=== PATIENT | female | born 1965 | race Caucasian/White ===

== ENCOUNTER → 2017-07-01 | Outpatient (CLI) | payer OTHER | LOC: M RAD 10:38 | DX: Z96.651 Presence of right artificial knee joint (principal) ==

== ENCOUNTER → 2018-03-31 | Outpatient (CLI) | payer BC | LOC: M RAD 16:15 | DX: Z12.31 Encounter for screening mammogram for malignant neoplasm of breast (principal); Z80.3 Family history of malignant neoplasm of breast; N60.31 Fibrosclerosis of right breast; N60.32 Fibrosclerosis of left breast | CPT/HCPCS: 77067 ==

== ENCOUNTER 2018-09-16 16:43 | Emergency (ER) | payer BC ==
[~2018-09-16] VITALS: Ht 162.6 cm; Wt 118.2 kg
[~2018-09-16 16:43] MED LIST: COUM2.5T17 PO; DRIS50003 PO; LEVO150T7 PO; MOBI15TA PO; TRAM50TA2 PO; VITA-112 PO
[2018-09-16] MEDS ORDERED: MYRB25TA PO (17:01)
[2018-09-16] MEDS ORDERED: ACETAMINOPHEN 500 MG TAB PO ONE (17:30)
[2018-09-16] MEDS ORDERED: IBUPROFEN 600 MG TAB PO ONE (17:30)
--- NOTE | 2018-09-16 17:32 | REP ---
Chest one-view HISTORY: Chest pain Comparison: 02/13/2016 The lungs are clear. The heart is normal in size. The pulmonary vasculature is normal in appearance. Impression: No acute disease. Electronically Signed by Norm Hubbard MD 09/16/2018 05:24 P
[2018-09-16 17:58] LABS: BASO % 0.4 % (0.0-1.0); EOS # 0.2 10^3/uL (0.0-0.50); EOS % 2.3 % (0.0-3.0); HEMATOCRIT 40.6 % (36.0-47.0); HEMOGLOBIN 13.7 g/dl (12.0-15.5); LYMPH # 2.7 10^3/uL (1.5-4.5); LYMPH % 34.3 % (24.0-44.0); MEAN CORPUSCULAR HEMOGLOBIN 28.9 pg (27.0-33.0); MEAN CORPUSCULAR HGB CONC 33.7 g/dl (32.0-36.5); MEAN CORPUSCULAR VOLUME 85.7 fl (80.0-96.0); MONO # 0.6 10^3/uL (0.0-0.8); MONO % 7.1 % (0.0-5.0); NEUTROPHILS # 4.3 10^3/uL (1.8-7.7); NEUTROPHILS % 55.4 % (36.0-66.0); PLATELET COUNT, AUTOMATED 225 10^3/uL (150-450); RED BLOOD COUNT 4.74 10^6/uL (4.00-5.40); WHITE BLOOD COUNT 7.7 10^3/uL (4.0-10.0)
[2018-09-16 18:13] LABS: INR 0.94; PROTHROMBIN TIME 12.7 SECONDS (12.1-14.4)
[2018-09-16 18:24] LABS: ALBUMIN 3.6 GM/DL (3.2-5.2); ALT/SGPT 80 U/L (12-78); BILIRUBIN,DIRECT < 0.1 MG/DL (0.0-0.2); BILIRUBIN,TOTAL 0.5 MG/DL (0.2-1.0); BLOOD UREA NITROGEN 8 MG/DL (7-18); CALCIUM LEVEL 9.3 MG/DL (8.5-10.1); CARBON DIOXIDE LEVEL 26 MEQ/L (21-32); CHLORIDE LEVEL 108 MEQ/L (98-107); CPK CREATINE PHOSPHOKINASE 156 U/L (26-192); GLOMERULAR FILTRATION RATE > 60.0 (>51); GLUCOSE, FASTING 124 MG/DL (70-100); LIPASE 180 U/L (73-393); MB/CK RELATIVE INDEX 1.03 (< OR =4); NT-PRO BNP 21 PG/ML (<125); POTASSIUM SERUM 3.8 MEQ/L (3.5-5.1); SODIUM LEVEL 141 MEQ/L (136-145); TOTAL PROTEIN 7.7 GM/DL (6.4-8.2); TROPONIN I < 0.02 NG/ML (< 0.10)
[2018-09-16] MEDS ORDERED: ISOVUE-370 76% 100ML VIAL (Q9967) As Ordered ONE (19:15)
--- NOTE | 2018-09-16 20:29 | ECGEPIP ---
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
--- NOTE | 2018-09-16 20:42 | REPVR ---
EXAM: CT Angiography Chest With Contrast EXAM DATE/TIME: 09/16/2018 7:19 PM CLINICAL HISTORY: 52 years old, female; Signs and symptoms; Shortness of breath; Additional info: Kehinde radford TECHNIQUE: Imaging protocol: Axial computed tomographic angiography images of the chest with intravenous contrast using CT angiography protocol. Coronal and sagittal reformatted images were created and reviewed. 3D rendering: MIP reconstructed images were created and reviewed. Radiation optimization: All CT scans at this facility use at least one of these dose optimization techniques: automated exposure control; mA and/or kV adjustment per patient size (includes targeted exams where dose is matched to clinical indication); or iterative reconstruction. Contrast material: ISOVUE 370; Contrast volume: 75 ml; Contrast route: IV; COMPARISON: CR PORTABLE CHEST X-RAY 09/16/2018 5:10 PM FINDINGS: Pulmonary arteries: Normal. No pulmonary emboli. Aorta: Normal. No aortic aneurysm. No aortic dissection. Lungs: 5 mm nodule anterior segment right upper lobe (series 502 image 32). Discoid atelectasis or scar in the lingula. Pleural space: Normal. No pneumothorax. No pleural effusion. Heart: Normal. No cardiomegaly. No pericardial effusion. Mediastinum: There's a small sliding hiatal hernia. Lymph nodes: Unremarkable. No enlarged lymph nodes. Bones/joints: Unremarkable. No acute fracture. Soft tissues: Unremarkable. IMPRESSION: 1. No acute pulmonary embolism. 2. 5 mm nodule right upper lobe.No routine follow-up is indicated. (Gregory et al., Fleischner Society, 2017) Electronically signed by: Mary Chilel On 09/16/2018 20:41:48 PM
[2018-09-16 21:41] LABS: CPK CREATINE PHOSPHOKINASE 128 U/L (26-192); MB/CK RELATIVE INDEX 0.78 (< OR =4); TROPONIN I < 0.02 NG/ML (< 0.10)
[2018-09-16 22:00] VITALS: BP 144/81
--- NOTE | 2018-09-17 06:40 | ECGEPIP ---
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
--- NOTE | 2018-09-17 07:21 | ED PDOC ---
Post-Departure Follow-Up jess romero faxed formal report of cta chest for fu Leila Gee MD Sep 17, 2018 07:21
--- NOTE | 2018-09-17 07:46 | REP ---
LEFT SHOULDER THREE VIEWS: HISTORY: Shoulder pain. There is no acute fracture or dislocation. There is moderate narrowing of the acromioclavicular joint space. The glenohumeral joint space is normal in appearance. IMPRESSION: Degenerative change as described above. Electronically Signed by Norm Hubbard MD 09/17/2018 07:59 A
== END 2018-09-16 22:28 | disposition home or self-care (01) ==
LOC: M ED 16:43
DX: R07.89 Other chest pain (principal); R91.1 Solitary pulmonary nodule; M19.012 Primary osteoarthritis, left shoulder; R00.2 Palpitations; Z87.59 Personal history of other complications of pregnancy, childbirth and the puerperium; Z87.891 Personal history of nicotine dependence; Z82.49 Family history of ischemic heart disease and other diseases of the circulatory system; Z83.3 Family history of diabetes mellitus; Z79.899 Other long term (current) drug therapy; Z88.5 Allergy status to narcotic agent; Z88.1 Allergy status to other antibiotic agents; Z91.040 Latex allergy status
CPT/HCPCS: 71045; 71275; 73030; 80048; 80076; 82550; 82553; 83690; 83880; 84484; 85025; 85379; 85610; 93005; 93041; 94760; 99285; Q9967

== ENCOUNTER → 2018-11-02 | Outpatient (CLI) | payer BC ==
[~2018-11-02] MED LIST changes: +MYRB25TA PO
--- NOTE | 2018-11-02 10:24 | REP ---
CT NECK WITHOUT CONTRAST: HISTORY: Right parotid gland stone. The naso-, timo-, and hypopharynx, larynx and subglottic trachea are normal in appearance. A 6 mm calcification is present in the right parotid gland. The left parotid , submandibular and thyroid glands are normal in size and density. Small lymph nodes less than 1 cm in size are present in the internal jugular chains, posterior triangles and submandibular areas. The lung apices are clear. The visualized sinuses are clear. The patient is status-post right mastoidectomy. Soft tissue density is present at the right mastoidectomy site. This represents scar tissue. Mucosal thickening is present in the left middle ear cavity and mastoid air cells. IMPRESSION: 1. Right parotid gland sialolithiasis . 2. The patient is status-post right mastoidectomy. Electronically Signed by Norm Hubbard MD 11/02/2018 10:30 A
== END ==
LOC: M RAD 09:18
PROVIDERS: ATTEND Otolaryngology
DX: K11.5 Sialolithiasis (principal)

== ENCOUNTER → 2018-11-04 | Outpatient (CLI) | payer BC ==
--- NOTE | 2018-11-04 19:30 | REP ---
THORACIC SPINE: AP and lateral views of the thoracic spine performed with three total views obtained. There is no compression fracture or malalignment with normal thoracic kyphosis. There is mild spurring of upper thoracic vertebral bodies. Large spurs are seen anteriorly of T9 through T11. There is mild disc space narrowing and subchondral sclerosis at all levels. Posterior elements are intact. IMPRESSION: Diffuse degenerative changes without evidence of fracture. Electronically Signed by Addi Douglas MD 11/04/2018 07:51 P
--- NOTE | 2018-11-04 19:33 | REP ---
LUMBOSACRAL SPINE SERIES: Five views of the lumbosacral spine are performed. There is no compression fracture or malalignment with normal lumbar lordosis. There is no spondylolysis or spondylolisthesis. There is mild diffuse spurring. There is slight narrowing at L4-L5 disc space. There is sclerosis and spurring at the posterior facet joints especially L5-S1. Posterior elements are intact. IMPRESSION: Relatively mild diffuse degenerative changes without fracture or dislocation. Electronically Signed by Addi Douglas MD 11/04/2018 07:51 P
== END ==
LOC: M WUC 16:34
PROVIDERS: ATTEND Chiropractor
DX: M54.5 Low back pain (principal); M54.6 Pain in thoracic spine

== ENCOUNTER → 2019-02-01 | Outpatient (CLI) | payer BC ==
[2019-02-01 08:28] LABS: ALBUMIN 3.4 GM/DL (3.2-5.2); ALT/SGPT 44 U/L (12-78); BILIRUBIN,TOTAL 0.9 MG/DL (0.2-1.0); BLOOD UREA NITROGEN 14 MG/DL (7-18); CALCIUM LEVEL 9.1 MG/DL (8.5-10.1); CARBON DIOXIDE LEVEL 28 MEQ/L (21-32); CHLORIDE LEVEL 110 MEQ/L (98-107); CREATININE FOR GFR 0.82 MG/DL (0.55-1.30); GLOMERULAR FILTRATION RATE > 60.0 (>51); GLUCOSE, FASTING 129 MG/DL (70-100); POTASSIUM SERUM 4.3 MEQ/L (3.5-5.1); SODIUM LEVEL 144 MEQ/L (136-145); TOTAL PROTEIN 6.9 GM/DL (6.4-8.2)
[2019-02-01 08:37] LABS: CREATININE, URINE 68.2 MG/DL; MALB URINE SIEMENS 6.4 MG/L; MAU/CREAT RATIO 9.3 MCG/MG (0.0-30.0)
[2019-02-01 08:44] LABS: HEMOGLOBIN A1c 6.4 %
== END ==
LOC: M LAB 07:15
PROVIDERS: ATTEND Nurse Practitioner Family
DX: E11.9 Type 2 diabetes mellitus without complications (principal); Z79.899 Other long term (current) drug therapy

== ENCOUNTER → 2019-04-04 | Outpatient (CLI) | payer BC ==
--- NOTE | 2019-04-04 18:32 | REPMRS ---
Patient History The patient states she had a clinical breast exam in May 2018.Family history of breast cancer in paternal aunt, breast cancer at age 80 in paternal aunt, breast cancer at age 60 in sister. Taking unspecified hormones beginning at age 16. Digital Mammo Screening Bilat: April 04, 2019 - Exam #: [id number] Bilateral CC and MLO view(s) were taken. Technologist: Bibiana Small, Technologist Prior study comparison: March 31, 2018, bilateral digital mammo screening bilat performed at [facility]. March 26, 2017, bilateral digital mammo screening bilat, performed at [facility]. December 18, 2015, bilateral digital mammo screening bilat, performed at [facility]. FINDINGS: The breast tissue is heterogeneously dense. This may lower the sensitivity of mammography. There is a moderate amount of heterogeneously dense fibroglandular tissue which is fairly symmetric. There is no interval development of dominant mass, architectural distortion, or grouped microcalcification typical of malignancy. There has been no change in the appearance of the mammogram from the prior studies. 3-D tomosynthesis shows no additional findings. Assessment: BI-RADS/ACR category 1 mammogram. Negative Mammogram. Recommendation Breast MRI of both breasts in 6 months. Routine screening mammogram of both breasts in 1 year (for women over age 40). This patient's Lifetime Breast Cancer RIsk is estimated at 25.3 %. Annual screening Breast MRI scanniing is recommended for patient's whose lifetime risk assessment is over 20%. This mammogram was interpreted with the aid of an FDA-approved computer-aided dectection system. Electronically Signed By: George Wright MD 04/04/19 [id number]
== END ==
LOC: M RAD 16:18
PROVIDERS: ATTEND Obstetrics & Gynecology
DX: Z12.31 Encounter for screening mammogram for malignant neoplasm of breast (principal)

== ENCOUNTER → 2019-05-01 | Outpatient (CLI) | payer BC ==
[2019-05-01 10:50] LABS: HEMOGLOBIN A1c 6.2 %
== END ==
LOC: M LAB 07:10
PROVIDERS: ATTEND Nurse Practitioner Family
DX: E11.9 Type 2 diabetes mellitus without complications (principal)

== ENCOUNTER 2019-06-19 14:10 | Day surgery (SDC) | payer BC ==
[~2019-06-19] VITALS: Ht 162.6 cm; Wt 116.3 kg
[~2019-06-19 14:10] MED LIST changes: +ceFAZolin SOD 2 GM in IV 1 EA IV ONE
[2019-06-19] MEDS ORDERED: VESI10TA2 PO (14:41)
[2019-06-19] MEDS ORDERED: TIZA2CAP PO (14:41)
[2019-06-19] MEDS ORDERED: GLIP10TA PO (14:41)
[2019-06-19] MEDS ORDERED: ATOR1TAB21 PO (14:41)
[2019-06-19] MEDS ORDERED: SUPECAP7 PO (14:41)
[2019-06-19] MEDS ORDERED: fentaNYL 250 MCG/5 ML INJECTION (J3010) As Ordered ONE (15:27)
[2019-06-19] MEDS ORDERED: LIDOCAINE 2% INJ 100 MG/5 ML SDV (FOR ANES.) As Ordered ONE ×2 (15:28→17:07)
[2019-06-19] MEDS ORDERED: ONDANSETRON 4MG/2ML VIAL (J2405) As Ordered ONE (15:28)
[2019-06-19] MEDS ORDERED: MIDAZOLAM INJ 2 MG/2 ML VIAL (J2250) As Ordered ONE (15:28)
[2019-06-19] MEDS ORDERED: dexameTHASONE 4 MG/ML 1ML VIAL (J1100) As Ordered ONE (15:28)
[2019-06-19] MEDS ORDERED: ROCURONIUM BROMIDE 50 MG/5 ML VIAL As Ordered ONE (15:28)
[2019-06-19] MEDS ORDERED: SUGAMMADEX SODIUM 500 MG/5 ML VIAL (BRIDION) As Ordered ONE ×2 (15:28→17:07)
[2019-06-19] MEDS ORDERED: propofoL 200 MG/20 ML VIAL As Ordered ONE (15:34)
[2019-06-19] MEDS ORDERED: BUPIVACAINE/EPIN 0.25% 30 ML VIAL As Ordered ONE (15:56)
[2019-06-19] MEDS ORDERED: SCOPOLAMINE 1MG TRANSDERMAL PATCH As Ordered ONE (15:57)
[2019-06-19] MEDS ORDERED: KETAMINE HCL 200 MG/20 ML VIAL As Ordered ONE (17:01)
[2019-06-19] MEDS ORDERED: KETOROLAC 60 MG/2 ML VIAL (J1885) As Ordered ONE (17:36)
[2019-06-19] MEDS ORDERED: ACETAMINOPHEN 1000MG 100ML IV BTL (OFIRMEV) (J0131 PER 10MG) As Ordered ONE (17:37)
[2019-06-19] MEDS ORDERED: LR 1,000 ML IV SCH (18:15)
[2019-06-19] MEDS ORDERED: fentaNYL 100 MCG/2 ML INJECTION (J3010) IV PRN (18:15)
[2019-06-19] MEDS ORDERED: ONDANSETRON 4MG/2ML VIAL (J2405) IV PRN (18:15)
[2019-06-19] MEDS ORDERED: oxyCODONE 5MG TAB PO PRN ×2 (18:45)
--- NOTE | 2019-06-19 21:00 | RO ---
DATE OF PROCEDURE: 06/19/2019 PREPROCEDURE DIAGNOSIS: Right distal bicep tear. POSTPROCEDURE DIAGNOSIS: Right distal bicep tear. PROCEDURE: Right distal bicep repair. SURGEON: Osvaldo Laughlin MD STONECUTTER: None. ANESTHESIA: General. PREOPERATIVE ANTIBIOTICS: 2 grams of Ancef. COMPLICATIONS: None. TOURNIQUET TIME: 50 minutes. INDICATIONS: This is a 53-year-old female who suffered a right distal bicep tear. We discussed the risks and benefits of surgical repair, and the patient wished to have it done. We discussed the risks and benefits, including, but not limited to, infection, damage to surrounding structures, incomplete relief, and rerupture, patient wished to proceed. DESCRIPTION OF PROCEDURE: The patient was brought back to the operating room (OR) in the supine position, underwent general anesthesia, at which point the right arm was prepped and draped in the usual fashion. We then had a time-out confirming the side, site, and surgery. Once all in agreement, we elevated the tourniquet up to 250 mmHg. We then made a longitudinal incision along the ulnar border of brachial radialis, approximately 2 cm distal to the antecubital fossa, approximately 4 cm in length. We then sharply dissected through the subcutaneous tissue, careful to find the border between brachial radialis and flexor carpi radialis (FCR). We developed this border, encountering a lot of musculocutaneous nerve. We carefully retracted it laterally. We then used a combination of cautery, small and medium vascular clips to dissect through crossing veins and remove them from our field. We then visualized the proximal radius. The bicep tendon had retracted about 2 cm with approximately 2-5% incontinuity that kept it from retracting further. The rupture was completed. We then whip-stitched the distal bicep using the Arthrex kit with a Fred needle. Once this was done, we applied traction and freed it up from any proximal adhesions. We then maximally supinated the wrist to expose the distal bicep insertion. We cleared this of any debris. We then used the 3.[address] a center hole and aimed about 30 degrees ulnar to avoid the posterior interosseous nerve (PIN). We then sized the tendon to be a size 8. We then used the 8 reamer to do the near cortex, at which point we loaded the button in the usual fashion. We removed the 3.2 mm drill, inserted the button and flipped it. We then tightened down the FiberWire so that it dunked the tendon into the 8 reamed hole. It situated quite nicely. We then used a 3 needle to pass one stitch through the distal biceps, then tied it down tight. We ranged the elbow and felt that the elbow could out to complete extension with pronation without excessive tension on the repair. We were very happy with this, so then we irrigated the wound thoroughly, closed the superficial with #2-0 Vicryl, skin with #3-0 Monocryl, Mastisol, Steri-Strips, gauze, Tegaderm, Kerlix and an Brendan. Tourniquet was let down. The patient was awakened and taken to the post-anesthesia care unit (PACU) in stable condition. POSTOPERATIVE PLAN: The patient will work on pain and active and passive range of motion of the elbow with limited weightbearing to a coffee cup, 2 pounds. Will see the patient back in 2 weeks for a repeat clinical check and will wait approximately 6 weeks since surgery to advance her weightbearing, but will determine the need for physical therapy at her first visit.
[2019-06-19 21:45] VITALS: BP 153/78
[2019-06-20] MEDS ORDERED: LR 1,000 ML IV ONE (07:00)
== END 2019-06-19 22:04 | disposition home or self-care (01) ==
LOC: M SDC 14:10
PROVIDERS: ATTEND Orthopaedic Surgery Hand Surgery
DX: S46.111A Strain of muscle, fascia and tendon of long head of biceps, right arm, initial encounter (principal); X58.XXXA Exposure to other specified factors, initial encounter; Y92.89 Other specified places as the place of occurrence of the external cause; G47.30 Sleep apnea, unspecified; E11.9 Type 2 diabetes mellitus without complications; E07.9 Disorder of thyroid, unspecified; K21.9 Gastro-esophageal reflux disease without esophagitis; M54.9 Dorsalgia, unspecified; E66.9 Obesity, unspecified; Z88.5 Allergy status to narcotic agent; Z88.1 Allergy status to other antibiotic agents
CPT/HCPCS: 24342; C1713; J0131; J0690; J1100; J1885; J2250; J2405; J3010

== ENCOUNTER → 2020-01-01 | Outpatient (CLI) | payer BC ==
[~2020-01-01] MED LIST changes: +ATOR1TAB21 PO; +GLIP10TA PO; +SUPECAP7 PO; +TIZA2CAP PO; +VESI10TA2 PO; -ceFAZolin SOD 2 GM in IV 1 EA IV ONE
[2020-02-13 10:55] LABS: CARBON DIOXIDE LEVEL 27 MEQ/L (21-32); CHLORIDE LEVEL 109 MEQ/L (98-107); CREATININE FOR GFR 0.76 MG/DL (0.55-1.30); GLOMERULAR FILTRATION RATE > 60.0 (>51); POTASSIUM SERUM 3.6 MEQ/L (3.5-5.1); SODIUM LEVEL 142 MEQ/L (136-145)
== END ==
LOC: M LAB 14:20
PROVIDERS: ATTEND Obstetrics & Gynecology
DX: N32.81 Overactive bladder (principal)

== ENCOUNTER → 2020-03-07 | Outpatient (REF) | payer BC ==
[2020-03-07 21:59] LABS: APPEARANCE, URINE HAZY (CLEAR); BACTERIA, URINE AUTO NEGATIVE (NEGATIVE); BILIRUBIN, URINE AUTO NEGATIVE (NEGATIVE); BLOOD, URINE BLOOD 2+ (NEGATIVE); COLOR, URINE YELLOW (YELLOW); GLUCOSE, URINE (UA) AUTO NEGATIVE (NEGATIVE); KETONE, URINE AUTO NEGATIVE (NEGATIVE); LEUKOCYTE ESTERASE, URINE AUTO 2+ (NEGATIVE); NITRITE, URINE AUTO NEGATIVE (NEGATIVE); PROTEIN, URINE AUTO NEGATIVE (NEGATIVE); RBC, URINE AUTO 16 /HPF (0-3); SPECIFIC GRAVITY URINE AUTO 1.014 (1.002-1.035); SQUAMOUS EPITHELIAL CELL UR AU 1 /HPF (0-6); UROBILINOGEN, URINE AUTO 0.2 mg/dL (0.0-2.0); WBC, URINE AUTO 180 /HPF (0-3)
== END ==
LOC: M LAB REF 19:25
PROVIDERS: ATTEND Physician Assistant
DX: N39.0 Urinary tract infection, site not specified (principal)

== ENCOUNTER → 2020-05-08 | Outpatient (CLI) | payer BC ==
[2020-05-08 09:09] LABS: HEMATOCRIT 40.9 % (36.0-47.0); HEMOGLOBIN 13.6 g/dl (12.0-15.5); MEAN CORPUSCULAR HEMOGLOBIN 29.3 pg (27.0-33.0); MEAN CORPUSCULAR HGB CONC 33.3 g/dl (32.0-36.5); MEAN CORPUSCULAR VOLUME 88.1 fl (80.0-96.0); PLATELET COUNT, AUTOMATED 231 10^3/uL (150-450); RED BLOOD COUNT 4.64 10^6/uL (4.00-5.40); WHITE BLOOD COUNT 7.7 10^3/uL (4.0-10.0)
[2020-05-08 09:34] LABS: HEMOGLOBIN A1c 6.5 %
[2020-05-08 09:37] LABS: ALBUMIN 3.4 GM/DL (3.2-5.2); ALT/SGPT 44 U/L (12-78); BILIRUBIN,TOTAL 0.6 MG/DL (0.2-1.0); BLOOD UREA NITROGEN 17 MG/DL (7-18); CALCIUM LEVEL 9.1 MG/DL (8.5-10.1); CARBON DIOXIDE LEVEL 27 MEQ/L (21-32); CHLORIDE LEVEL 106 MEQ/L (98-107); CHOLESTEROL LEVEL 131 MG/DL (<200); CHOLESTEROL RISK RATIO 4.225 (<5); CREATININE FOR GFR 0.75 MG/DL (0.55-1.30); FREE T4 1.29 NG/DL (0.76-1.46); GLOMERULAR FILTRATION RATE > 60.0 (>51); GLUCOSE, FASTING 125 MG/DL (70-100); HDL CHOLESTEROL 31 MG/DL (>40); LDL CHOLESTEROL 52 MG/DL (<100); NON-HDL-C 100 MG/DL; POTASSIUM SERUM 4.2 MEQ/L (3.5-5.1); SODIUM LEVEL 141 MEQ/L (136-145); TOTAL PROTEIN 7.2 GM/DL (6.4-8.2); TRIGLYCERIDES LEVEL 240 MG/DL (<150)
== END ==
LOC: M LAB 07:28
PROVIDERS: ATTEND Nurse Practitioner Family
DX: E11.9 Type 2 diabetes mellitus without complications (principal); E03.9 Hypothyroidism, unspecified; E78.2 Mixed hyperlipidemia

== ENCOUNTER → 2020-09-27 | Outpatient (CLI) | payer BC ==
--- NOTE | 2020-10-01 03:33 | ECWPNPC ---
PATIENT NAME: ELIDA MILAN : 1965 GENDER: FEMALE VISIT DATE: 09/27/2020 DISCHARGE DATE: 09/27/20 1424 VISIT LOCKED DATE TIME: PHYSICIAN: JASPER CONNELLY RESOURCE: JASPER CONNELLY REASON FOR APPOINTMENT 1. NECK/BACK HISTORY OF PRESENT ILLNESS DEPRESSION SCREENING: PHQ-2 (2015 EDITION) LITTLE INTEREST OR PLEASURE IN DOING THINGS?NOT AT ALL FEELING DOWN, DEPRESSED, OR HOPELESS?NOT AT ALL TOTAL SCORE0 GENERAL: 54-YEAR-OLD FEMALE BEING REFERRED BY [facility] FOR PERSISTENT NECK AND SHOULDER PAIN TO CONSIDER TRIGGER POINT INJECTIONS. PAIN HAS BEEN A PROBLEM SINCE APPROXIMATELY 3 YEARS AGO. 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 X-RAY IMAGING OF THE NECK IS REVIEWED. PAIN IS AGGRAVATED WITH RANGE OF JOINT MOTION OF THE NECK AND USE OF HER ARMS. DISCUSSED TRIGGER POINT INJECTIONS. PATIENT IS ADVISED ON POTENTIAL RISKS ASSOCIATED WITH INJECTION THERAPY AND IS WILLING TO SIGN A CONSENT TODAY FOR THIS. - - -. FALL RISK SCREENING: SCREENING : NO FALLS REPORTED IN THE LAST YEAR , : NO FALLS REPORTED IN THE LAST YEAR. PAIN SCREENING: PATIENT HAS A COMPLAINT OF ACUTE OR CHRONIC PAIN :YES LOCATION OF PAIN:NECK, MID BACK, LOW BACK INTENSITY OF PAIN (SCALE OF 1 TO 10):5 WHAT DOES YOUR PAIN FEEL LIKE:ACHING, BURNING DURATION:CONTINOUS, CONSTANT, ALL DAY, MAINLY DURING THE NIGHT PAIN IS INCREASED BY:ACTIVITIES PAIN IS DECREASED BY:OTHERS HEAT AND ICE NURSING NOTE: - - -. PAIN CENTER INTAKE QUESTIONS: DO YOU HAVE A HISTORY OF MRSA? :NO DO YOU TAKE A BLOOD THINNERS? :NO DO YOU HAVE ANY BLEEDING DISORDERS? :NO ANY NEW NUMBNESS OR WEAKNESS IN YOUR LEGS OR ARMS? :YES BOTH HAND AND LEFT KNEE NEED TO BE REPLACED ANY PACEMAKER,DEFIBRILLATOR, OR DORSAL COLUMN STIMULATOR? :NO DO YOU HAVE ANY RASHES OR OPEN SORES? :NO ARE YOU ALLERGIC TO IV DYE? :NO ARE YOU DIABETIC? :YES ANY NEW PROBLEMS WITH YOUR MEDICATIONS? :NO HAVE YOU RECEIVED A VACCINE IN THE PAST 30 DAYS? :NO DO YOU PLAN TO RECEIVE A VACCINE IN THE NEXT 21 DAYS? :NO DO YOU NEED ANY PRESCRIPTION? :NO DO YOU TAKE ANY IMMUNOSUPPRESSIVE MEDICATIONS? :NO IS THERE A CHANCE YOU COULD BE ? :NO ARE YOU BREAST FEEDING? :NO CURRENT MEDICATIONS TAKING SYNTHROID 150 MCG TABLET 1 TABLET ORALLY ONCE A DAY TAKING TRAMADOL HCL 50 MG TABLET 1 TAB ORALLY EVERY 6 HOURS NEEDED/MMD#4 TAKING IBUPROFEN 800 MG TABLET 1 TABLET WITH FOOD OR MILK NEEDED ORALLY NEEDED DAILY, NOTES: LAST TAKEN 09/29/18 0900 TAKING ATORVASTATIN CALCIUM 20 MG TABLET 1 TABLET ORALLY ONCE A DAY TAKING TIZANIDINE HCL 2 MG TABLET 1 TABLET NEEDED ORALLY NEEDED AT BED TIME TAKING MYRBETRIQ 25 MG TABLET EXTENDED RELEASE 24 HOUR 1 TABLET ORALLY ONCE A DAY TAKING VESICARE 10 MG TABLET 1 TABLET ORALLY ONCE A DAY TAKING OMEGA 3 1000 MG CAPSULE 1 CAPSULE ORALLY ONCE A DAY TAKING MULTIVITAMIN - TABLET 1 TABLET ORALLY ONCE A DAY NOT-TAKING MYREBTRIQ 25 MG TABLET 1 TABLET ORALLY ONCE A DAY NOT-TAKING VESICARE 10 MG TABLET 1 TABLET ORALLY ONCE A DAY NOT-TAKING ONETOUCH BASIC SYSTEM NOT-TAKING AMOXICILLIN 500 MG CAPSULE 1 CAPSULE ORALLY EVERY 8 HRS NOT-TAKING PHENAZOPYRIDINE HCL 100 MG TABLET 2 TABLETS AFTER MEALS ORALLY THREE TIMES A DAY NOT-TAKING ONETOUCH DELICA PLUS LANCETS 335G ONCE DAILY NOT-TAKING MAY HAVE [place] BALM NOT-TAKING GLIPIZIDE 10 MG TABLET 1 TABLET 30 MINUTES BEFORE BREAKFAST ORALLY ONCE A DAY NOT-TAKING MELOXICAM 15 MG TABLET 1 TABLET ORALLY ONCE A DAY NOT-TAKING COUMADIN 2.5MG TAKE @BEDTIME BEFORE SRUGERY NOT-TAKING EUFLEXXA 20 MG/2ML SOLUTION PREFILLED SYRINGE 2 ML INTRA-ARTICULAR NOT-TAKING MOBIC 15 MG TABLET 1 TABLET ORALLY ONCE A DAY NOT-TAKING WARFARIN SODIUM 10 MG TABLET 1 TABLET ORALLY ONCE A DAY NOT-TAKING TYLENOL 1 TAB ORAL 500MG/15ML NOT-TAKING VALIUM 2 MG TABLET 1 TABLET NEEDED ORALLY ONCE A DAY NOT-TAKING BENZONATATE 200 MG CAPSULE 1 CAPSULE ORALLY THREE TIMES A DAY NOT-TAKING DOXYCYCLINE HYCLATE 100 MG CAPSULE DIRECTED ORALLY TWICE A DAY NOT-TAKING VITAMIN D 50 MCG (2000 UT) TABLET 1 TABLET ORALLY ONCE A DAY NOT-TAKING VITAMIN D3 HIGH POTENCY 2000 CAP MEDICATION LIST REVIEWED AND RECONCILED WITH THE PATIENT PAST MEDICAL HISTORY ACQUIRED HYPOTHYROIDISM VITAMIN D DEFICIENCY TROPHOBLASTIC NEOPLASM HISTORY OF TOBACCO ABUSE PURE HYPERCHOLESTEROLEMIA ALLERGIES CODEINE PHOSPHATE: HIVES - ALLERGY MORPHINE SULFATE: HIVES - ALLERGY PERCOCET: HIVES - ALLERGY VICODIN: LOSS ALL BODY FUNTIONS - ALLERGY ERYTHROMYCIN: NAUSEA/VOMITING - SIDE EFFECTS DILAUDID: NAUSEA/VOMITING - SIDE EFFECTS LATEX (FOR ALLERGY USE ONLY): ANGIOEDEMA - ALLERGY AUGMENTIN: NAUSEA/VOMITING - ALLERGY SURGICAL HISTORY LAPAROSCOPIC 04/1994 TUBE IN RIGHT EAR 03/20/83 TUBE IN LEFT EAR 07/1982 C SECTION 11/19/80 C SECTION 10/10/98 C SECTION 10/29/00 FIBROID TUMOR & ENDOMETRIOSIS REMOVED 06/1994 SKIN GRAFTS RIGHT FOOT AND ANKLE D&C INCOMPLETE 08/1999 HYSTER, 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 COLONOSCOPY 11/2004 CHOLESTEATOMA LEFT EAR 01/2007 CHOLESTETOMA REPAIR RIGHT EAR 06/2008 RIGHT KNEE REPLACEMENT 08/2008 COLONOSCOPY 10/2011 RECTAL POLYP 11/02 SALIVARY STONE REMOVED 2X FAMILY HISTORY FATHER: 82 YRS, DIAGNOSED WITH HYPERTENSION, DIABETES, UNSPECIFIED CEREBRAL ARTERY OCCLUSION WITH CEREBRAL INFARCTION, OTHER MALIGNANT NEOPLASM OF UNSPECIFIED SITE MOTHER: ALIVE 80 YRS, HYPERTENSION, UNSPECIFIED HEART DISEASE SIBLINGS: ALIVE SON(S): ALIVE DAUGHTER(S): ALIVE PATERNAL GRAND FATHER: PATERNAL GRAND MOTHER: MATERNAL GRAND FATHER: MATERNAL GRAND MOTHER: , OTHER MALIGNANT NEOPLASM OF UNSPECIFIED SITE 2 BROTHER(S) , 1 SISTER(S) - HEALTHY. 1 SON(S) , 2 DAUGHTER(S) - HEALTHY. SOCIAL HISTORY GENERAL: TOBACCO USE ARE YOU A:FORMER SMOKER HOW LONG HAS IT BEEN SINCE YOU LAST SMOKED?> 10 YEARS LATEX QUESTIONNAIRE LATEX ALLERGY : HAVE YOU EVER DEVELOPED ANY TYPE OF REACTION AFTER HANDLING LATEX PRODUCTS SUCH RUBBER GLOVES, CONDOMS, DIAPHRAGMS, BALLOONS, SOCKS, OR UNDERWEAR?YES LATEX ALLERGY : HAVE YOU EVER DEVELOPED ANY TYPE OF REACTION DURING OR AFTER DENTAL APPOINTMENT, VAGINAL/RECTAL EXAMINATION, SURGICAL PROCEDURE, OR ANY OTHER EXPOSURE?NO LATEX RISK : HAVE YOU EVER HAD ANY DIFFICULTY BREATHING OR HIVES AFTER EATING OR HANDLING ANY FRUITS, OR VEGETABLES; SUCH KIWI, BANANAS, STONE FRUITS, OR CHESTNUTSNO LATEX RISK : DO YOU HAVE A PREVIOUS PERSONAL HISTORY OF MORE THAN NINE SURGERIES, SPINA BIFIDA, OR REPEATED CATHERIZATIONS? NO LATEX RISK : ARE YOU FREQUENTLY EXPOSED TO LATEX PRODUCTS IN YOUR OCCUPATION?NO DATE ASKED : 09/27/2020 ALCOHOL USE: YES. ALCOHOL SCREENING DID YOU HAVE A DRINK CONTAINING ALCOHOL IN THE PAST YEAR?YES HOW OFTEN DID YOU HAVE SIX OR MORE DRINKS ON ONE OCCASION IN THE PAST YEAR?NEVER (0 POINTS) HOW MANY DRINKS DID YOU HAVE ON A TYPICAL DAY WHEN YOU WERE DRINKING IN THE PAST YEAR?1 OR 2 (0 POINTS) HOW OFTEN DID YOU HAVE A DRINK CONTAINING ALCOHOL IN THE PAST YEAR?MONTHLY OR LESS (1 POINT) POINTS1 INTERPRETATIONNEGATIVE RECREATIONAL DRUG USE DRUG USE?NO CAFFEINE CAFFEINE USE?YES HOW OFTEN AND HOW MUCH? 1-2 CUPS OF COFFEE MANDAEN NO CATHOLIC BELIEFS THAT WOULD IMPACT HEALTH CARE. LANGUAGE TRINIDADIAN. 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 DIET: REGULAR. EXERCISE: NO REGULAR EXERCISE. MARITAL STATUS: . OTHERS AT HOME: SPOUSE, CHILDREN. HOSPITALIZATION/MAJOR DIAGNOSTIC PROCEDURE ABOVE REVIEW OF SYSTEMS CONSTITUTIONAL: ANY RECENT FEVER NO . CHILLS NO . WEIGHT CHANGE OF UNKNOWN REASONS NO . MUSCULOSKELETAL: ANY UNUSUAL JOINT PAIN OR SWELLING NOT MENTIONED NO . SYSTEMIC LUPUS NO . ANY NEUROMUSCULAR DISORDER NOT MENTIONED NO . LYME DISEASE NO . GASTROENTEROLOGY: ANY NEW CHANGE IN BOWEL CONTROL? NO . HISTORY OF LIVER DISORDER NOT MENTIONED NO . HISTORY OF UNUSUAL ABDOMINAL PAIN OR CRAMPING NOT MENTIONED NO . NO CONSTIPATION. GENITOURINARY: ANY NEW CHANGE IN BLADDER CONTROL? NO . ANY RENAL/KIDNEY CONDITON NOT MENTIONED NO . NEUROLOGY: HISTORY OF TBI NOT MENTIONED NO . OTHER NEW NUMBNESS OR PAIN PATTERNS NOT MENTIONED NO . NEW ONSET DIZZINESS OR NEUROLOGICAL CHANGES NOT MENTIONED NO . HISTORY OF SEVERE HEADACHES NOT MENTIONED NO . HISTORY OF STROKE OR NEUROLOGICAL DISORDER NOT MENTIONED NO . CARDIOLOGY: HEART SURGERY NO . CONGESTIVE HEART FAILURE/FLUID OVERLOAD NOT MENTIONED NO . HISTORY OF CHEST PAIN,IRREGULAR HEART BEAT NOT MENTIONED NO . RESPIRATORY: SHORTNESS OF BREATH ON EXERTION, WHEEZES, UNUSUAL COUGH NOT MENTIONED NO . ENDOCRINOLOGY: ADRENAL GLAND OR THYROID DISORDERS NOT MENTIONED NO . UNUSUAL URINATION, DIZZINESS OR LETHARGY NOT MENTIONED NO . VITAL SIGNS WT 266 LBS, HT 64 IN, BMI 45.65 INDEX, BP 181/81 MM HG, HR 75 /MIN, RR 18 /MIN, TEMP 98.4 F, SAFE IN ENV? (Y/N) YEST.KEVIN ENCISO. EXAMINATION GENERAL EXAMINATION: GENERALNO ACUTE DISTRESS, WELL NOURISHED AND HYDRATED. PSYCHAPPROPRIATE MOOD AND AFFECT . FACE:UNREMARKABLE. NECK:NO LYMPHADENOPATHY, SUPPLE, NO THYROMEGALLY. LUNGS:CLEAR TO AUSCULTATION BILATERALLY, NO WHEEZES, RHONCHI, RALES. HEART:NO MURMURS, REGULAR RATE AND RHYTHM. MUSCULOSKELETAL:NORMAL RANGE OF MOTION. TRIGGER POINTS: NOTED OVER BILATERAL NECK AND THORACIC REGION WELL SHOULDER AREA RIGHT GREATER THAN LEFT. PAIN IS AGGRAVATED IN THIS REGION WITH RANGE OF JOINT MOTION OF THE NECK OR RANGE OF JOINT MOTION OF HER ARMS.. ASSESSMENTS MYALGIA, OTHER SITE - M79.18 (PRIMARY) TREATMENT MYALGIA, OTHER SITE MED: PAIN ZOFRAN ODT TAB 4MG DISSOLVE ON TONGUE ONDANSETRON (ORDERED FOR 10/04/2020) MEDICATION: VALIUM 5MG IV (DIAZEPAM) (ORDERED FOR 10/04/2020) NOTES: TRIGGER POINT INJECTIONS BILATERAL NECK,BILATERAL SHOULDERS,BILATERAL THORACIC PRINTED AND REVIEWED PRE PROCEDURE INFORMATION,PATIENT VERBALIZED UNDERSTANDING SACHI NECISO. REFERRAL TO:PHYSICAL THERAPIST REASON:2XWK X 6 WKS,MYOFASCIAL RELEASE,MASSAGE,STRETCHING PROCEDURE CODES [id number] ESTABILISHED PATIENT [facility] CHARGE DISPOSITION & COMMUNICATION FOLLOW UP POST (REASON: TRIGGER POINT INJECTIONS BILATERAL NECK,BILATERAL SHOULDERS,BILATERAL THORACIC/FOLLOW UP PT REFERRAL) ELECTRONICALLY SIGNED BY MERY RUIZ ON 09/30/2020 AT 08:59 PM EDT DISCLAIMER : THIS IS A VISIT SUMMARY EXTRACTED FROM THE [employer] CHART. IT IS NOT A COPY OF THE [employer] PROGRESS NOTE. LUPE
== END ==
LOC: M PAIN 13:00
PROVIDERS: ATTEND Nurse Practitioner Family
DX: M79.18 Myalgia, other site (principal); E03.9 Hypothyroidism, unspecified; E55.9 Vitamin D deficiency, unspecified; E78.00 Pure hypercholesterolemia, unspecified; Z87.891 Personal history of nicotine dependence; Z79.891 Long term (current) use of opiate analgesic; Z79.899 Other long term (current) drug therapy; Z88.5 Allergy status to narcotic agent; Z88.1 Allergy status to other antibiotic agents; Z88.0 Allergy status to penicillin; Z91.040 Latex allergy status; Z88.8 Allergy status to other drugs, medicaments and biological substances

== ENCOUNTER → 2020-10-05 | Outpatient (CLI) | payer BC | LOC: M LABSMTC 10:51 | PROVIDERS: ATTEND Anesthesiology | DX: Z11.52 Encounter for screening for COVID-19 (principal) ==

== ENCOUNTER → 2020-10-10 | Outpatient (CLI) | payer BC ==
[~2020-10-10] MED LIST changes: +BUPIVACAINE HCL 0.25% 10ML VIAL As Ordered ONE; +BUPIVACAINE HCL 0.25% 30ML VIAL As Ordered ONE; +ONDANSETRON 4 MG ORAL DISINTEGRATING TAB As Ordered ONE; +TRIAMCINOLONE ACETONIDE SUSP 40 MG/ML VIAL (J3301) As Ordered ONE; +diazePAM 5MG TABLET As Ordered ONE
--- NOTE | 2020-10-16 00:27 | ECWPNPC ---
PATIENT NAME: ELIDA MILAN : 1965 GENDER: FEMALE VISIT DATE: 10/10/2020 DISCHARGE DATE: 10/10/20 1053 VISIT LOCKED DATE TIME: PHYSICIAN: JEANETTE MASON MD RESOURCE: JEANETTE MASON MD REASON FOR APPOINTMENT 1. TRIGGER POINT INJECTIONS BILATERAL NECK,BILATERAL SHOULDERS,BILATERAL THORACIC HISTORY OF PRESENT ILLNESS FALL RISK SCREENING: SCREENING : NO FALLS REPORTED IN THE LAST YEAR.. PAIN SCREENING: PATIENT HAS A COMPLAINT OF ACUTE OR CHRONIC PAIN :YES LOCATION OF PAIN:NECK, BOTH SHOULDERS, UPPER BACK, MID BACK INTENSITY OF PAIN (SCALE OF 1 TO 10):9 WHAT DOES YOUR PAIN FEEL LIKE:ACHING, BURNING, STABBING DURATION:CONTINOUS, CONSTANT, ALL DAY, AWAKENS FROM SLEEP PAIN IS INCREASED BY:ACTIVITIES WORK SPECIFICALLY AGGRAVATES PAIN. PAIN IS DECREASED BY:OTHERS ICE PLAN/GOALS/TREATMENT/INTERVENTION/FOLLOW UP:SEE PLAN NURSING NOTE: - - -. PAIN CENTER INTAKE QUESTIONS: DO YOU HAVE A HISTORY OF MRSA? :NO DO YOU TAKE A BLOOD THINNERS? :NO DO YOU HAVE ANY BLEEDING DISORDERS? :NO ANY NEW NUMBNESS OR WEAKNESS IN YOUR LEGS OR ARMS? :YES BOTH HAND AND LEFT KNEE NEED TO BE REPLACED ANY PACEMAKER,DEFIBRILLATOR, OR DORSAL COLUMN STIMULATOR? :NO DO YOU HAVE ANY RASHES OR OPEN SORES? :NO ARE YOU ALLERGIC TO IV DYE? :NO ARE YOU DIABETIC? :YES FSBS: 72. ANY NEW PROBLEMS WITH YOUR MEDICATIONS? :NO HAVE YOU RECEIVED A VACCINE IN THE PAST 30 DAYS? :NO DO YOU PLAN TO RECEIVE A VACCINE IN THE NEXT 21 DAYS? :NO DO YOU TAKE ANY IMMUNOSUPPRESSIVE MEDICATIONS? :NO ANY HISTORY OF SEIZURES? :NO ANY HISTORY OF CARDIAC ISSUES OR EVENTS? :NO DO YOU HAVE ANY KIDNEY OR LIVER DISEASE? :NO DO YOU HAVE SLEEP APNEA? :YES DO YOU WEAR A CPAP?YES ANY RECENT HEAD INJURY? :NO DO YOU HAVE ANY NEW INFECTIONS? :NO IS THERE A CHANCE YOU COULD BE ? :N/A ARE YOU BREAST FEEDING? :N/A WHEN DID YOU LAST EAT? : 10/09/20 1930 WHEN DID YOU LAST DRINK? : 10/10/20 0600 WHAT DID YOU LAST DRINK? : DIET ASHLI BRANNON NAME OF PERSON DRIVING YOU HOME? : DO YOU HAVE ANY OTHER QUESTIONS OR CONCERNS? : NO CURRENT MEDICATIONS TAKING SYNTHROID 150 MCG TABLET 1 TABLET ORALLY ONCE A DAY TAKING TRAMADOL HCL 50 MG TABLET 1 TAB ORALLY EVERY 6 HOURS NEEDED/MMD#4, NOTES: NOT RECENTLY TAKING IBUPROFEN 800 MG TABLET 1 TABLET WITH FOOD OR MILK NEEDED ORALLY NEEDED DAILY, NOTES: 10/09 PM TAKING ATORVASTATIN CALCIUM 20 MG TABLET 1 TABLET ORALLY ONCE A DAY TAKING TIZANIDINE HCL 2 MG TABLET 1 TABLET NEEDED ORALLY NEEDED AT BED TIME, NOTES: NOT RECENTLY TAKING MYRBETRIQ 25 MG TABLET EXTENDED RELEASE 24 HOUR 1 TABLET ORALLY ONCE A DAY, NOTES: 10/09 PM TAKING VESICARE 10 MG TABLET 1 TABLET ORALLY ONCE A DAY TAKING OMEGA 3 1000 MG CAPSULE 1 CAPSULE ORALLY ONCE A DAY TAKING MULTIVITAMIN - TABLET 1 TABLET ORALLY ONCE A DAY TAKING GLIPIZIDE 10 MG TABLET 1 TABLET 30 MINUTES BEFORE BREAKFAST ORALLY ONCE A DAY, NOTES: 10/09 AM NOT-TAKING MYREBTRIQ 25 MG TABLET 1 TABLET ORALLY ONCE A DAY NOT-TAKING VESICARE 10 MG TABLET 1 TABLET ORALLY ONCE A DAY NOT-TAKING ONETOUCH BASIC SYSTEM NOT-TAKING AMOXICILLIN 500 MG CAPSULE 1 CAPSULE ORALLY EVERY 8 HRS NOT-TAKING PHENAZOPYRIDINE HCL 100 MG TABLET 2 TABLETS AFTER MEALS ORALLY THREE TIMES A DAY NOT-TAKING ONETOUCH DELICA PLUS LANCETS 335G ONCE DAILY NOT-TAKING MAY HAVE LEMON GRASS HEALING BALM NOT-TAKING GLIPIZIDE 10 MG TABLET 1 TABLET 30 MINUTES BEFORE BREAKFAST ORALLY ONCE A DAY NOT-TAKING MELOXICAM 15 MG TABLET 1 TABLET ORALLY ONCE A DAY NOT-TAKING COUMADIN 2.5MG TAKE @BEDTIME BEFORE SRUGERY NOT-TAKING EUFLEXXA 20 MG/2ML SOLUTION PREFILLED SYRINGE 2 ML INTRA-ARTICULAR NOT-TAKING MOBIC 15 MG TABLET 1 TABLET ORALLY ONCE A DAY NOT-TAKING WARFARIN SODIUM 10 MG TABLET 1 TABLET ORALLY ONCE A DAY NOT-TAKING TYLENOL 1 TAB ORAL 500MG/15ML NOT-TAKING VALIUM 2 MG TABLET 1 TABLET NEEDED ORALLY ONCE A DAY NOT-TAKING BENZONATATE 200 MG CAPSULE 1 CAPSULE ORALLY THREE TIMES A DAY NOT-TAKING DOXYCYCLINE HYCLATE 100 MG CAPSULE DIRECTED ORALLY TWICE A DAY NOT-TAKING VITAMIN D 50 MCG (2000 UT) TABLET 1 TABLET ORALLY ONCE A DAY NOT-TAKING VITAMIN D3 HIGH POTENCY 2000 CAP MEDICATION LIST REVIEWED AND RECONCILED WITH THE PATIENT PAST MEDICAL HISTORY ACQUIRED HYPOTHYROIDISM VITAMIN D DEFICIENCY TROPHOBLASTIC NEOPLASM HISTORY OF TOBACCO ABUSE PURE HYPERCHOLESTEROLEMIA ALLERGIES CODEINE PHOSPHATE: HIVES - ALLERGY MORPHINE SULFATE: HIVES - ALLERGY PERCOCET: HIVES - ALLERGY VICODIN: LOSS ALL BODY FUNTIONS - ALLERGY ERYTHROMYCIN: NAUSEA/VOMITING - SIDE EFFECTS DILAUDID: NAUSEA/VOMITING - SIDE EFFECTS LATEX (FOR ALLERGY USE ONLY): ANGIOEDEMA - ALLERGY AUGMENTIN: NAUSEA/VOMITING - ALLERGY SURGICAL HISTORY LAPAROSCOPIC 04/1994 TUBE IN RIGHT EAR 03/20/83 TUBE IN LEFT EAR 07/1982 C SECTION 11/19/80 C SECTION 10/10/98 C SECTION 10/29/00 FIBROID TUMOR & ENDOMETRIOSIS REMOVED 06/1994 SKIN GRAFTS RIGHT FOOT AND ANKLE D&C INCOMPLETE 08/1999 HYSTER, 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 COLONOSCOPY 11/2004 CHOLESTEATOMA LEFT EAR 01/2007 CHOLESTETOMA REPAIR RIGHT EAR 06/2008 RIGHT KNEE REPLACEMENT 08/2008 COLONOSCOPY 10/2011 RECTAL POLYP 11/02 SALIVARY STONE REMOVED 2X SOCIAL HISTORY GENERAL: TOBACCO USE ARE YOU A:FORMER SMOKER HOW LONG HAS IT BEEN SINCE YOU LAST SMOKED?> 10 YEARS LATEX QUESTIONNAIRE LATEX ALLERGY : HAVE YOU EVER DEVELOPED ANY TYPE OF REACTION AFTER HANDLING LATEX PRODUCTS SUCH RUBBER GLOVES, CONDOMS, DIAPHRAGMS, BALLOONS, SOCKS, OR UNDERWEAR?YES LATEX ALLERGY : HAVE YOU EVER DEVELOPED ANY TYPE OF REACTION DURING OR AFTER DENTAL APPOINTMENT, VAGINAL/RECTAL EXAMINATION, SURGICAL PROCEDURE, OR ANY OTHER EXPOSURE?NO DATE ASKED : 09/27/2020 LATEX RISK : HAVE YOU EVER HAD ANY DIFFICULTY BREATHING OR HIVES AFTER EATING OR HANDLING ANY FRUITS, OR VEGETABLES; SUCH KIWI, BANANAS, STONE FRUITS, OR CHESTNUTSNO LATEX RISK : DO YOU HAVE A PREVIOUS PERSONAL HISTORY OF MORE THAN NINE SURGERIES, SPINA BIFIDA, OR REPEATED CATHERIZATIONS? NO LATEX RISK : ARE YOU FREQUENTLY EXPOSED TO LATEX PRODUCTS IN YOUR OCCUPATION?NO ALCOHOL USE: YES. ALCOHOL SCREENING DID YOU HAVE A DRINK CONTAINING ALCOHOL IN THE PAST YEAR?YES HOW OFTEN DID YOU HAVE SIX OR MORE DRINKS ON ONE OCCASION IN THE PAST YEAR?NEVER (0 POINTS) HOW MANY DRINKS DID YOU HAVE ON A TYPICAL DAY WHEN YOU WERE DRINKING IN THE PAST YEAR?1 OR 2 (0 POINTS) HOW OFTEN DID YOU HAVE A DRINK CONTAINING ALCOHOL IN THE PAST YEAR?MONTHLY OR LESS (1 POINT) POINTS1 INTERPRETATIONNEGATIVE RECREATIONAL DRUG USE DRUG USE?NO CAFFEINE CAFFEINE USE?YES HOW OFTEN AND HOW MUCH? 1-2 CUPS OF COFFEE HOLINESS NO CONGREGATION BELIEFS THAT WOULD IMPACT HEALTH CARE. LANGUAGE EMIRATI. 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 EXERCISE: NO REGULAR EXERCISE. MARITAL STATUS: . OTHERS AT HOME: SPOUSE, CHILDREN. VITAL SIGNS WT 263.8 LBS, HT 64 IN, BMI 45.28 INDEX, BP 175/86 MM HG, HR 88 /MIN, RR 18 /MIN, TEMP 96.4 F, OXYGEN SAT % 96%, BLOOD GLUCOSE LEVEL 72, SAFE IN ENV? (Y/N) YES, NA INITIALS SC 08:45, REVIEWED BY: Ayanna QUEZADA AUTOMATIC OVEN OPERATOR, LMP: HYSTERECTOMY. EXAMINATION GENERAL EXAMINATION: A HISTORY AND PHYSICAL EXAM ON THE PATIENT WAS DONE ON 09/27/2020 (DATE OF ORIGINAL ASSESSMENT) IN PREPARATION OF SURGERY/PROCEDURE. I HAVE NOW REASSESSED THIS PATIENT'S HEALTH STATUS AND PERFORMED AN UPDATED EXAM TODAY. ALL CHANGES IN THE PATIENT'S HISTORY, PHYSICAL EXAM, PRE-EXISTING CONDITONS, AND INDICATIONS/CONTRAINDICATIONS TO THE PLANNED PROCEDURE AND ANESTHESIA ARE DOCUMENTED AND EVALUATED BELOW. I ATTEST TO THE ADEQUACY AND APPROPRIATENESS OF MY ASSESSMENT, AND CONFIRM THE NECESSITY FOR THE PLANNED PROCEDURE. THE PATIENT IS ALERT, ORIENTED TIMES THREE AND COOPERATIVE. LUNGS ARE CLEAR TO AUSCULTATION. HEART SHOWS REGULAR RHYTHM, NO MURMURS AND NO GALLOPS. ASSESSMENTS MYALGIA, OTHER SITE - M79.18 (PRIMARY) TREATMENT MYALGIA, OTHER SITE MEDICATION: VALIUM 5MG IV (DIAZEPAM)HANDY LÓPEZ 10/10/2020 8:59:50 AM > VERIFIED HANDY LÓPEZ 10/10/2020 8:59:50 AM > VERIFIED ALY BAUTISTA 10/10/2020 9:16:27 AM > SECOND DOSE ORDERED, VERIFIED WITH SYDNEY HAIRSTON 10/10/2020 9:37:28 AM > VERIFIED. HOPE QUEZADA 10/10/2020 9:39:49 AM > ADMINISTERED. MED: PAIN ZOFRAN ODT TAB 4MG DISSOLVE ON TONGUE ONDANSETRONGERMAINE LÓPEZBETH 10/10/2020 9:00:02 AM > VERIFIED HOPE QUEZADA 10/10/2020 9:33:29 AM > ADMINISTERD AT 0933. PROCEDURES PAIN NURSING RECORD PROCEDURE IN ROOM 0832 UPON ARRIVAL TO CLINIC, PHYSICIAN IN ROOM 1014, START 1021, FINISH 1025, PHYSICIAN OUT OF ROOM 1026, OUT OF ROOM 1048, ECG N/A, PATIENT SHIELDED N/A, SAFETY STRAP N/A, PREP ALCOHOL DR. MASON, DRESSING TEGADERM Ayanna QUEZADA RN LOC: HOPE QUEZADA 10/10/2020 8:50:00 AM > 1. ALERT, ORIENTED LOC REMAINED AT BASELINE THROUGHOUT THE PROCEDURE RESP: HOPE QUEZADA 10/10/2020 8:50:00 AM > 1. REGULAR, NO DYSPNEA COLOR: HOPE QUEZADA 10/10/2020 8:50:00 AM > 1. PINK SKIN: HOPE QUEZADA 10/10/2020 8:50:00 AM > 1. WARM, DRY POSITION: HOPE QUEZADA 10/10/2020 8:50:00 AM > 5. SITTING VITALS: HOPE QUEZADA 10/10/2020 9:50:59 AM > 201/100, 150/80 (MANUAL), 76, 97% RA, 16. HOPE QUEZADA 10/10/2020 10:05:42 AM > POST PO SEDATION VITAL SIGNS NOT OBTAINED AT THIS TIME, PATIENT IN POSITION FOR PROCEDURE. HOPE QUEZADA 10/10/2020 10:30:01 AM > POST PROCEDURE: 170/82 (MANUAL), 77, 96% RA, 18. COMPLETION OF PROCEDURE APPOINTMENT: POST PAIN 2/10 SORE AT INJECTION SITE, DRESSING SITE DRY AND INTACT, IV N/A, GAIT STEADY, TEACHING COMPLETED, PATIENT ACKNOWLEDGES UNDERSTANDING YES PATIENT PROVIDED POST PROCEDURE PAIN DIARY, COVID SYMPTOM MONITORING INSTRUCTIONS AND POST PROCEDURE INSTRUCTIONS, HANDOUTS REVIEWED WITH PATIENT; PATIENT VERBALIZES UNDERSTANDING, NO QUESTIONS OR CONCERNS AT THIS TIME., PROCEDURE APPOINTMENT COMPLETED AT 1048 BY: Ayanna QUEZADA RN. PN TRIGGER POINT INJECTION NO STEROIDS PRE PROCEDURE DIAGNOSIS 1. MYALGIA 2. PAIN AT BILATERAL NECK AREA, BILATERAL SHOULDER AREA AND BILATERAL THORACIC AREA POST PROCEDURE DIAGNOSIS 1. MYALGIA 2. PAIN AT BILATERAL NECK AREA, BILATERAL SHOULDER AREA AND BILATERAL THORACIC AREA PROCEDURE TRIGGER POINT INJECTION AT BILATERAL NECK AREA, BILATERAL SHOULDER AREA AND BILATERAL THORACIC AREA SURGEON DR. JEANETTE MASON MOWING MACHINE OPERATOR NONE ANESTHESIA LOCAL PRE PROCEDURE NOTE PATIENT WITH HISTORY OF CHRONIC PAIN AT RIGHT AND LEFT NECK AREA, RIGHT AND LEFT SHOULDER AREA AND RIGHT AND LEFT THORACIC AREA. I EVALUATED THE PATIENT AND REVIEWED THE CHART. THERE IS EVIDENCE OF BANDS OF TISSUE WITH RESTRICTION OF MOVEMENT AND PRESENCE OF TRIGGER POINT AT THE RIGHT AND LEFT NECK AREA, RIGHT AND LEFT SHOULDER AREA AND RIGHT AND LEFT THORACIC AREA. I WENT OVER THE RISKS, ALTERNATIVES, AND BENEFITS ASSOCIATED WITH THIS PROCEDURE. THE PATIENT WOULD LIKE TO PROCEED AND GAVE CONSENT TO PERFORM THE PROCEDURE. THE PATIENT DENIES UNEXPLAINABLE WEIGHT LOSS, FEVER, CHILLS, OR NEW CHANGES IN URINARY OR BOWEL CONTROL. THE PATIENT IS COVID-19 NEGATIVE DESCRIPTION OF PROCEDURE THE PATIENT WAS BROUGHT TO THE PROCEDURE ROOM AND PLACED IN THE SITTING POSITION. THE AREA WAS CLEANED WITH ALCOHOL. THE PROCEDURE WAS DONE USING ASEPTIC STERILE TECHNIQUES. A TIMEOUT WAS PERFORMED WHERE THE CONSENTED SITE WAS VERIFIED WITH EVERYONE IN THE ROOM. USING A 25-GAUGE NEEDLE, TRIGGER POINTS WERE INJECTED INTO THE RIGHT AND LEFT NECK AREA, RIGHT AND LEFT SHOULDER AREA AND RIGHT AND LEFT THORACIC AREA WITH A TOTAL OF 40 ML OF BUPIVACAINE 0.25%. AGREED WITH THE PATIENT THE PROCEDURE WAS DONE WITHOUT STEROIDS. THERE WAS NO EVIDENCE OF BLOOD, PARESTHESIA OR CEREBROSPINAL FLUID DURING THE PROCEDURE. THE PATIENT WAS SENT TO THE RECOVERY ROOM. THE PATIENT WAS MOVING THE EXTREMITIES AND DOING WELL. THERE WAS NO COMPLICATION DURING THE PROCEDURE. EBL LESS THAN 5 ML. POST PROCEDURE NOTE DEPENDING ON THE RESULTS, CONSIDER REPEATING INJECTION WITH STEROIDS. THE PROCEDURE DONE WAS DISCUSSED WITH THE PATIENT. THE PATIENT WILL BE SEEN IN A FOLLOW UP IN THE NEXT FEW WEEKS. I AM LOOKING FOR LONG LASTING PAIN RELIEF FOR THE PATIENT WITH THIS INTERVENTION. INSTRUCTIONS WERE GIVEN, QUESTIONS WERE ANSWERED, AND THE PATIENT EXPRESSED UNDERSTANDING AND AGREES WITH THE PLAN. I, ALY BAUTISTA, DOCUMENTED THE ABOVE INFORMATION ACTING A SCRIBE FOR DR. MASON. I HAVE REVIEWED THE ABOVE DOCUMENT, WRITTEN BY ALY BAUTISTA, CENTER MEDICAL AND LAB DIRECTOR, AND I VERIFY THAT IT IS ACCURATE PROCEDURE CODES 40154 INJECT TRIGGER POINTS 3/> DISPOSITION & COMMUNICATION FOLLOW UP FOLLOW UP WITH BUN PANNER (REASON: POST TRIGGER POINT INJECTION BILATERAL NECK, BILATERAL SHOULDER AND BILATERAL THORACIC) ELECTRONICALLY SIGNED BY JEANETTE MASNO MD, MD ON 10/15/2020 AT 11:43 AM EDT DISCLAIMER : THIS IS A VISIT SUMMARY EXTRACTED FROM THE [employer] CHART. IT IS NOT A COPY OF THE [employer] PROGRESS NOTE. LUPE
== END ==
LOC: M PAIN 08:30
PROVIDERS: ATTEND Anesthesiology
DX: M79.18 Myalgia, other site (principal); E03.9 Hypothyroidism, unspecified; E78.00 Pure hypercholesterolemia, unspecified; E11.9 Type 2 diabetes mellitus without complications; Z87.891 Personal history of nicotine dependence; Z79.84 Long term (current) use of oral hypoglycemic drugs; Z79.899 Other long term (current) drug therapy; Z79.891 Long term (current) use of opiate analgesic; Z88.5 Allergy status to narcotic agent; Z88.0 Allergy status to penicillin; Z88.1 Allergy status to other antibiotic agents; Z88.8 Allergy status to other drugs, medicaments and biological substances; Z91.040 Latex allergy status
CPT/HCPCS: 20553; Q0162

== ENCOUNTER → 2020-10-24 | Outpatient (CLI) | payer BC ==
[~2020-10-24] MED LIST changes: -BUPIVACAINE HCL 0.25% 10ML VIAL As Ordered ONE; -BUPIVACAINE HCL 0.25% 30ML VIAL As Ordered ONE; -ONDANSETRON 4 MG ORAL DISINTEGRATING TAB As Ordered ONE; -TRIAMCINOLONE ACETONIDE SUSP 40 MG/ML VIAL (J3301) As Ordered ONE; -diazePAM 5MG TABLET As Ordered ONE
--- NOTE | 2020-10-26 04:21 | ECWPNPC ---
PATIENT NAME: ELIDA MILAN : 1965 GENDER: FEMALE VISIT DATE: 10/24/2020 DISCHARGE DATE: 10/24/20 1533 VISIT LOCKED DATE TIME: PHYSICIAN: JASPER CONNELLY RESOURCE: JASPER CONNELLY REASON FOR APPOINTMENT 1. POST TRIGGER POINT INJECTIONS BILATERAL NECK,BILATERAL SHOULDERS,BILATERAL THORACIC/FOLLOW UP PT REFERRAL HISTORY OF PRESENT ILLNESS GENERAL: HERE FOR POST PROCEDURE FOLLOW-UP. HAD TRIGGER POINT INJECTIONS BILATERAL NECK, BILATERAL SHOULDERS AND BILATERAL THORACIC REGION WITHOUT STEROIDS. REPORTS IMPROVEMENT IN PAIN POST PROCEDURE. HAS NOT ATTENDED PHYSICAL THERAPY PLANNED SHE HAS NOT HEARD FROM PHYSICAL THERAPY AND WE HAVE SENT REFERRAL TWICE. DISCUSSED TREATMENT PLAN. -. FALL RISK SCREENING: SCREENING : NO FALLS REPORTED IN THE LAST YEAR. PAIN SCREENING: PATIENT HAS A COMPLAINT OF ACUTE OR CHRONIC PAIN :YES LOCATION OF PAIN:NECK, BOTH SHOULDERS, UPPER BACK, MID BACK INTENSITY OF PAIN (SCALE OF 1 TO 10):3 WHAT DOES YOUR PAIN FEEL LIKE:ACHING, STABBING DURATION:CONTINOUS, CONSTANT, ALL DAY PAIN IS INCREASED BY:ACTIVITIES, PROLONGED STANDING PAIN IS DECREASED BY:USE OF PAIN MEDICATIONS, OTHERS HEAT NURSING NOTE: -. PAIN CENTER INTAKE QUESTIONS: DO YOU HAVE A HISTORY OF MRSA? :NO DO YOU TAKE A BLOOD THINNERS? :NO DO YOU HAVE ANY BLEEDING DISORDERS? :NO ANY NEW NUMBNESS OR WEAKNESS IN YOUR LEGS OR ARMS? :YES BOTH HAND AND LEFT KNEE NEED TO BE REPLACED ANY PACEMAKER,DEFIBRILLATOR, OR DORSAL COLUMN STIMULATOR? :NO DO YOU HAVE ANY RASHES OR OPEN SORES? :NO ARE YOU ALLERGIC TO IV DYE? :NO ARE YOU DIABETIC? :YES ANY NEW PROBLEMS WITH YOUR MEDICATIONS? :NO HAVE YOU RECEIVED A VACCINE IN THE PAST 30 DAYS? :NO DO YOU PLAN TO RECEIVE A VACCINE IN THE NEXT 21 DAYS? :NO DO YOU NEED ANY PRESCRIPTION? :NO DO YOU TAKE ANY IMMUNOSUPPRESSIVE MEDICATIONS? :NO IS THERE A CHANCE YOU COULD BE ? :NO ARE YOU BREAST FEEDING? :NO CURRENT MEDICATIONS TAKING SYNTHROID 150 MCG TABLET 1 TABLET ORALLY ONCE A DAY TAKING TRAMADOL HCL 50 MG TABLET 1 TAB ORALLY EVERY 6 HOURS NEEDED/MMD#4, NOTES: NOT RECENTLY TAKING IBUPROFEN 800 MG TABLET 1 TABLET WITH FOOD OR MILK NEEDED ORALLY NEEDED DAILY TAKING ATORVASTATIN CALCIUM 20 MG TABLET 1 TABLET ORALLY ONCE A DAY TAKING TIZANIDINE HCL 2 MG TABLET 1 TABLET NEEDED ORALLY NEEDED AT BED TIME TAKING MYRBETRIQ 25 MG TABLET EXTENDED RELEASE 24 HOUR 1 TABLET ORALLY ONCE A DAY TAKING VESICARE 10 MG TABLET 1 TABLET ORALLY ONCE A DAY TAKING OMEGA 3 1000 MG CAPSULE 1 CAPSULE ORALLY ONCE A DAY TAKING MULTIVITAMIN - TABLET 1 TABLET ORALLY ONCE A DAY TAKING GLIPIZIDE 10 MG TABLET 1 TABLET 30 MINUTES BEFORE BREAKFAST ORALLY ONCE A DAY NOT-TAKING MYREBTRIQ 25 MG TABLET 1 TABLET ORALLY ONCE A DAY NOT-TAKING VESICARE 10 MG TABLET 1 TABLET ORALLY ONCE A DAY NOT-TAKING ONETOUCH BASIC SYSTEM NOT-TAKING AMOXICILLIN 500 MG CAPSULE 1 CAPSULE ORALLY EVERY 8 HRS NOT-TAKING PHENAZOPYRIDINE HCL 100 MG TABLET 2 TABLETS AFTER MEALS ORALLY THREE TIMES A DAY NOT-TAKING ONETOUCH DELICA PLUS LANCETS 335G ONCE DAILY NOT-TAKING MAY HAVE LEMON GRASS HEALING BALM NOT-TAKING GLIPIZIDE 10 MG TABLET 1 TABLET 30 MINUTES BEFORE BREAKFAST ORALLY ONCE A DAY NOT-TAKING MELOXICAM 15 MG TABLET 1 TABLET ORALLY ONCE A DAY NOT-TAKING COUMADIN 2.5MG TAKE @BEDTIME BEFORE SRUGERY NOT-TAKING EUFLEXXA 20 MG/2ML SOLUTION PREFILLED SYRINGE 2 ML INTRA-ARTICULAR NOT-TAKING MOBIC 15 MG TABLET 1 TABLET ORALLY ONCE A DAY NOT-TAKING WARFARIN SODIUM 10 MG TABLET 1 TABLET ORALLY ONCE A DAY NOT-TAKING TYLENOL 1 TAB ORAL 500MG/15ML NOT-TAKING VALIUM 2 MG TABLET 1 TABLET NEEDED ORALLY ONCE A DAY NOT-TAKING BENZONATATE 200 MG CAPSULE 1 CAPSULE ORALLY THREE TIMES A DAY NOT-TAKING DOXYCYCLINE HYCLATE 100 MG CAPSULE DIRECTED ORALLY TWICE A DAY NOT-TAKING VITAMIN D 50 MCG (2000 UT) TABLET 1 TABLET ORALLY ONCE A DAY NOT-TAKING VITAMIN D3 HIGH POTENCY 2000 CAP MEDICATION LIST REVIEWED AND RECONCILED WITH THE PATIENT PAST MEDICAL HISTORY ACQUIRED HYPOTHYROIDISM VITAMIN D DEFICIENCY TROPHOBLASTIC NEOPLASM HISTORY OF TOBACCO ABUSE PURE HYPERCHOLESTEROLEMIA ALLERGIES CODEINE PHOSPHATE: HIVES - ALLERGY MORPHINE SULFATE: HIVES - ALLERGY PERCOCET: HIVES - ALLERGY VICODIN: LOSS ALL BODY FUNTIONS - ALLERGY ERYTHROMYCIN: NAUSEA/VOMITING - SIDE EFFECTS DILAUDID: NAUSEA/VOMITING - SIDE EFFECTS LATEX (FOR ALLERGY USE ONLY): ANGIOEDEMA - ALLERGY AUGMENTIN: NAUSEA/VOMITING - ALLERGY SOCIAL HISTORY GENERAL: TOBACCO USE ARE YOU A:FORMER SMOKER HOW LONG HAS IT BEEN SINCE YOU LAST SMOKED?> 10 YEARS LATEX QUESTIONNAIRE LATEX ALLERGY : HAVE YOU EVER DEVELOPED ANY TYPE OF REACTION AFTER HANDLING LATEX PRODUCTS SUCH RUBBER GLOVES, CONDOMS, DIAPHRAGMS, BALLOONS, SOCKS, OR UNDERWEAR?YES LATEX ALLERGY : HAVE YOU EVER DEVELOPED ANY TYPE OF REACTION DURING OR AFTER DENTAL APPOINTMENT, VAGINAL/RECTAL EXAMINATION, SURGICAL PROCEDURE, OR ANY OTHER EXPOSURE?NO LATEX RISK : HAVE YOU EVER HAD ANY DIFFICULTY BREATHING OR HIVES AFTER EATING OR HANDLING ANY FRUITS, OR VEGETABLES; SUCH KIWI, BANANAS, STONE FRUITS, OR CHESTNUTSNO LATEX RISK : DO YOU HAVE A PREVIOUS PERSONAL HISTORY OF MORE THAN NINE SURGERIES, SPINA BIFIDA, OR REPEATED CATHERIZATIONS? NO LATEX RISK : ARE YOU FREQUENTLY EXPOSED TO LATEX PRODUCTS IN YOUR OCCUPATION?NO DATE ASKED : 10/24/2020 ALCOHOL USE: YES. ALCOHOL SCREENING DID YOU HAVE A DRINK CONTAINING ALCOHOL IN THE PAST YEAR?YES HOW OFTEN DID YOU HAVE SIX OR MORE DRINKS ON ONE OCCASION IN THE PAST YEAR?NEVER (0 POINTS) HOW MANY DRINKS DID YOU HAVE ON A TYPICAL DAY WHEN YOU WERE DRINKING IN THE PAST YEAR?1 OR 2 (0 POINTS) HOW OFTEN DID YOU HAVE A DRINK CONTAINING ALCOHOL IN THE PAST YEAR?MONTHLY OR LESS (1 POINT) POINTS1 INTERPRETATIONNEGATIVE RECREATIONAL DRUG USE DRUG USE?NO CAFFEINE CAFFEINE USE?YES HOW OFTEN AND HOW MUCH? 1-2 CUPS OF COFFEE EPISCOPALIAN NO JEWISH BELIEFS THAT WOULD IMPACT HEALTH CARE. LANGUAGE [place]. 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 EXERCISE: NO REGULAR EXERCISE. MARITAL STATUS: . OTHERS AT HOME: SPOUSE, CHILDREN. REVIEW OF SYSTEMS CONSTITUTIONAL: ANY RECENT FEVER NO . CHILLS NO . WEIGHT CHANGE OF UNKNOWN REASONS NO . MUSCULOSKELETAL: ANY UNUSUAL JOINT PAIN OR SWELLING NOT MENTIONED NO . SYSTEMIC LUPUS NO . ANY NEUROMUSCULAR DISORDER NOT MENTIONED NO . LYME DISEASE NO . GASTROENTEROLOGY: ANY NEW CHANGE IN BOWEL CONTROL? NO . HISTORY OF LIVER DISORDER NOT MENTIONED NO . HISTORY OF UNUSUAL ABDOMINAL PAIN OR CRAMPING NOT MENTIONED NO . NO CONSTIPATION. GENITOURINARY: ANY NEW CHANGE IN BLADDER CONTROL? NO . ANY RENAL/KIDNEY CONDITON NOT MENTIONED NO . NEUROLOGY: HISTORY OF TBI NOT MENTIONED NO . OTHER NEW NUMBNESS OR PAIN PATTERNS NOT MENTIONED NO . NEW ONSET DIZZINESS OR NEUROLOGICAL CHANGES NOT MENTIONED NO . HISTORY OF SEVERE HEADACHES NOT MENTIONED NO . HISTORY OF STROKE OR NEUROLOGICAL DISORDER NOT MENTIONED NO . CARDIOLOGY: HEART SURGERY NO . CONGESTIVE HEART FAILURE/FLUID OVERLOAD NOT MENTIONED NO . HISTORY OF CHEST PAIN,IRREGULAR HEART BEAT NOT MENTIONED NO . RESPIRATORY: SHORTNESS OF BREATH ON EXERTION, WHEEZES, UNUSUAL COUGH NOT MENTIONED NO . ENDOCRINOLOGY: ADRENAL GLAND OR THYROID DISORDERS NOT MENTIONED NO . UNUSUAL URINATION, DIZZINESS OR LETHARGY NOT MENTIONED NO . EXAMINATION GENERAL EXAMINATION: GENERALAWAKE,ALERT ,PLEASANT . PSYCHAFFECT NORMAL . LUNGS:LUNG [place] ARE CLEAR TO AUSCULTATION BILATERALLY. GOOD MOVEMENT OF AIR . HEART:S1, S2 IN A REGULAR RATE AND RHYTHM. NO SIGNIFICANT MURMURS, RUBS OR GALLOPS NOTED . ASSESSMENTS OTHER CHRONIC PAIN - G89.29 (PRIMARY) MYALGIA, OTHER SITE - M79.18 TREATMENT OTHER CHRONIC PAIN PAIN PROCEDURE LOGDATE OF PROCEDURE10/10/20PROCEDURE:TRIGGER POINT INJECTIONS BILATERAL NECK, BILATERAL SHOULDER, BILATERAL THORACIC W/O STEROIDSAMOUNT OF PRE SEDATEVALIUM 5 MG, ZOFRAN 4 MGJASPER CONNELLY FNP 10/25/2020 11:04:51 AM > PLEASE NOTE THE PATIENT RESPONDED WELL TO TRIGGER POINT INJECTIONS WITH IMPROVED MOBILITY AND RANGE OF MOTION JOINT MOTION. NOTES: PLEASE CALL PHYSICAL THERAPY TODAY WITH PATIENT HERE THIS WILL BE THE THIRD TIME THAT WE HAVE SENT REFERRAL FOR PHYSICAL THERAPY AND PATIENT HAS NOT HEARD BACK AND HAS NOT STARTED PHYSICAL THERAPY. FOLLOW-UP WILL BE SCHEDULED AT PAIN CENTER AFTER COMPLETION OF PHYSICAL THERAPY. PRINTED INFORMATION ON NECK EXERCISES AND FAX TO : [phone] SACHI ENCISO. [facility]:2XWK X 6 WKS,MASSAGE,MYOFASCIAL RELEASE MYALGIA, OTHER SITE REFERRAL TO:[facility]AP[facility] REASON:2XWK X 6 WKS,MASSAGE,MYOFASCIAL RELEASE PROCEDURE CODES FA211 ESTABILISHED PATIENT [facility] CHARGE DISPOSITION & COMMUNICATION FOLLOW UP PT WILL CALL (REASON: PT F/U AFTER COMPLETING PT) ELECTRONICALLY SIGNED BY MERY RUIZ ON 10/25/2020 AT 11:05 AM EDT DISCLAIMER : THIS IS A VISIT SUMMARY EXTRACTED FROM THE [employer] CHART. IT IS NOT A COPY OF THE [employer] PROGRESS NOTE. LUPE
== END ==
LOC: M PAIN 14:45
PROVIDERS: ATTEND Nurse Practitioner Family
DX: G89.29 Other chronic pain (principal); M79.18 Myalgia, other site; E03.9 Hypothyroidism, unspecified; E55.9 Vitamin D deficiency, unspecified; E78.00 Pure hypercholesterolemia, unspecified; Z87.891 Personal history of nicotine dependence; Z79.891 Long term (current) use of opiate analgesic; Z79.84 Long term (current) use of oral hypoglycemic drugs; Z79.899 Other long term (current) drug therapy; Z88.0 Allergy status to penicillin; Z88.1 Allergy status to other antibiotic agents; Z88.5 Allergy status to narcotic agent; Z88.8 Allergy status to other drugs, medicaments and biological substances; Z91.040 Latex allergy status

== ENCOUNTER → 2020-11-15 | Outpatient (CLI) | payer BC ==
--- NOTE | 2020-11-18 08:24 | REPMRS ---
Patient History The patient states she had a clinical breast exam in 2020. Patient had first child at age 32. Family history of breast cancer in paternal aunt, breast cancer at age 80 in paternal aunt, breast cancer at age 60 in sister. Taking unspecified hormones beginning at age 16. No breast complaints today Patient signed the MRS sheet 1st covid vaccine 06/20/20-left arm-Moderna 2nd covid vaccine 07/18/20-left arm Priors on PACS Patient Identification Verified Digital Woman Screen Mammo: November 15, 2020 - Exam #: [id number] Bilateral CC and MLO view(s) were taken. Technologist: Guadalupe Christine, Technologist Prior study comparison: April 04, 2019, bilateral digital mammo screening bilat, performed at [facility]. March 31, 2018, bilateral digital mammo screening bilat, performed at [facility]. March 26, 2017, bilateral digital mammo screening bilat, performed at [facility]. FINDINGS: There are scattered fibroglandular densities. The Volpara volumetric breast density category is:B. There has been no change in the appearance of the mammogram from the prior studies. There is a mild amount of scattered fibroglandular density which is fairly symmetric. There is no interval development of dominant mass, architectural distortion, or grouped microcalcification suggestive of malignancy. 3-D tomosynthesis shows no additional findings. Assessment: BI-RADS/ACR category 1 mammogram. Negative Mammogram. Recommendation Breast MRI of both breasts in 6 months. Routine screening mammogram of both breasts in 1 year (for women over age 40). This patient's [facility] Lifetime Breast Cancer Risk is estimated at 36.0 %. Patients whose estimated lifetime breast cancer risk assessment is greater than 20% merit annual screening breast MRI scanning in addition to annual mammography. This mammogram was interpreted with the aid of an FDA-approved computer-aided dectection system. Electronically Signed By: George Wright MD 11/18/20 0824
== END ==
LOC: M WHC 16:20
PROVIDERS: ATTEND Obstetrics & Gynecology
DX: Z12.31 Encounter for screening mammogram for malignant neoplasm of breast (principal)

== ENCOUNTER 2020-11-19 16:00 | Outpatient (RCR) | payer BC | END 2020-11-20 | LOC: M PT 16:00 | PROVIDERS: ATTEND Nurse Practitioner Family | DX: G89.29 Other chronic pain (principal); M79.18 Myalgia, other site ==

== ENCOUNTER 2020-12-12 16:00 | Outpatient (RCR) | payer BC | END 2020-12-21 | LOC: M PT 16:00 | PROVIDERS: ATTEND Nurse Practitioner Family | DX: G89.29 Other chronic pain (principal); M79.18 Myalgia, other site | CPT/HCPCS: 97110; 97140; G0283 ==

== ENCOUNTER → 2020-12-25 | Outpatient (REF) | payer BC ==
[2020-12-25 21:46] LABS: AMORPHOUS SEDIMENT SMALL (NEGATIVE); APPEARANCE, URINE HAZY (CLEAR); BACTERIA, URINE AUTO 2+ (NEGATIVE); BILIRUBIN, URINE AUTO NEGATIVE (NEGATIVE); BLOOD, URINE BLOOD 3+ (NEGATIVE); COLOR, URINE STRAW (YELLOW); GLUCOSE, URINE (UA) AUTO NEGATIVE (NEGATIVE); KETONE, URINE AUTO NEGATIVE (NEGATIVE); LEUKOCYTE ESTERASE, URINE AUTO 2+ (NEGATIVE); NITRITE, URINE AUTO NEGATIVE (NEGATIVE); PROTEIN, URINE AUTO NEGATIVE (NEGATIVE); RBC, URINE AUTO 5 /HPF (0-3); SPECIFIC GRAVITY URINE AUTO 1.002 (1.002-1.035); SQUAMOUS EPITHELIAL CELL UR AU 1 /HPF (0-6); UROBILINOGEN, URINE AUTO 0.2 mg/dL (0.0-2.0); WBC, URINE AUTO 39 /HPF (0-3)
== END ==
LOC: M LAB REF 21:16
PROVIDERS: ATTEND Physician Assistant
DX: N39.0 Urinary tract infection, site not specified (principal)

== ENCOUNTER → 2021-02-11 | Outpatient (REF) | LOC: M EMP 11:05 | PROVIDERS: ATTEND Family Medicine | DX: Z11.52 Encounter for screening for COVID-19 (principal) ==

== ENCOUNTER → 2021-03-11 | Outpatient (REF) | payer BC ==
[2021-03-11 13:11] LABS: APPEARANCE, URINE CLOUDY (CLEAR); BACTERIA, URINE AUTO 1+ (NEGATIVE); BILIRUBIN, URINE AUTO NEGATIVE (NEGATIVE); BLOOD, URINE BLOOD 2+ (NEGATIVE); COLOR, URINE YELLOW (YELLOW); GLUCOSE, URINE (UA) AUTO NEGATIVE (NEGATIVE); KETONE, URINE AUTO NEGATIVE (NEGATIVE); LEUKOCYTE ESTERASE, URINE AUTO 3+ (NEGATIVE); MUCUS, URINE SMALL (NEGATIVE); NITRITE, URINE AUTO NEGATIVE (NEGATIVE); PROTEIN, URINE AUTO NEGATIVE (NEGATIVE); RBC, URINE AUTO 68 /HPF (0-3); SPECIFIC GRAVITY URINE AUTO 1.004 (1.002-1.035); SQUAMOUS EPITHELIAL CELL UR AU 3 /HPF (0-6); UROBILINOGEN, URINE AUTO 0.2 mg/dL (0.0-2.0); WBC, URINE AUTO TNTC /HPF (0-3)
== END ==
LOC: M LAB REF 12:16
PROVIDERS: ATTEND Physician Assistant Medical
DX: N39.0 Urinary tract infection, site not specified (principal)

== ENCOUNTER → 2021-05-12 | Outpatient (CLI) | payer BC ==
[2021-05-12 18:02] LABS: BASO % 0.5 % (0.0-1.0); EOS # 0.2 10^3/uL (0.0-0.5); EOS % 2.9 % (0.0-3.0); HEMATOCRIT 38.9 % (36.0-47.0); HEMOGLOBIN 12.7 g/dl (12.0-15.5); LYMPH # 2.4 10^3/uL (1.5-5.0); LYMPH % 32.7 % (24.0-44.0); MEAN CORPUSCULAR HEMOGLOBIN 28.8 pg (27.0-33.0); MEAN CORPUSCULAR HGB CONC 32.6 g/dl (32.0-36.5); MEAN CORPUSCULAR VOLUME 88.2 fl (80.0-96.0); MONO # 0.6 10^3/uL (0.0-0.8); MONO % 8.2 % (2.0-8.0); NEUTROPHILS # 4.1 10^3/uL (1.5-8.5); NEUTROPHILS % 55.4 % (36.0-66.0); PLATELET COUNT, AUTOMATED 252 10^3/uL (150-450); RED BLOOD COUNT 4.41 10^6/uL (4.00-5.40); WHITE BLOOD COUNT 7.3 10^3/uL (4.0-10.0)
[2021-05-12 19:25] LABS: ERYTHROCYTE SEDIMENTATION RATE 60 mm/hr (0-30)
== END ==
LOC: M PLALAB 13:29
PROVIDERS: ATTEND Orthopaedic Surgery
DX: S46.211D Strain of muscle, fascia and tendon of other parts of biceps, right arm, subsequent encounter (principal); W18.30XD Fall on same level, unspecified, subsequent encounter; Y92.009 Unspecified place in unspecified non-institutional (private) residence as the place of occurrence of the external cause

== ENCOUNTER → 2021-10-02 | Outpatient (REF) | LOC: M EMP 09:37 | PROVIDERS: ATTEND Family Medicine | DX: R05.9 Cough, unspecified (principal) ==

== ENCOUNTER → 2021-11-19 | Outpatient (CLI) | payer BC | LOC: M WHC 16:04 | PROVIDERS: ATTEND Obstetrics & Gynecology | DX: Z12.31 Encounter for screening mammogram for malignant neoplasm of breast (principal) ==

== ENCOUNTER → 2022-02-09 | Outpatient (REF) ==
[~2022-02-09] MED LIST changes: +CEFD300C41 PO; +KETO10TAB PO
== END ==
LOC: M EMP 07:54
PROVIDERS: ATTEND Family Medicine
DX: Z11.52 Encounter for screening for COVID-19 (principal)

== ENCOUNTER 2022-02-10 07:36 | Emergency (ER) | payer BC ==
[~2022-02-10] VITALS: Ht 162.6 cm; Wt 115.6 kg
[~2022-02-10 07:36] MED LIST changes: -CEFD300C41 PO; -KETO10TAB PO
[2022-02-10] MEDS ORDERED: KETOROLAC 30 MG/ML 1ML VIAL IV ONE (07:55)
[2022-02-10] MEDS ORDERED: ONDANSETRON 4MG 2ML VIAL IV ONE (08:00)
[2022-02-10 08:23] LABS: BASO % 0.3 % (0.0-1.0); EOS # 0.1 10^3/uL (0.0-0.5); EOS % 0.5 % (0.0-3.0); HEMATOCRIT 40.3 % (36.0-47.0); HEMOGLOBIN 13.6 g/dl (12.0-15.5); LYMPH # 1.1 10^3/uL (1.5-5.0); LYMPH % 9.8 % (24.0-44.0); MEAN CORPUSCULAR HEMOGLOBIN 29.7 pg (27.0-33.0); MEAN CORPUSCULAR HGB CONC 33.7 g/dl (32.0-36.5); MONO # 0.8 10^3/uL (0.0-0.8); MONO % 6.8 % (2.0-8.0); NEUTROPHILS # 9.6 10^3/uL (1.5-8.5); NEUTROPHILS % 82.1 % (36.0-66.0); PLATELET COUNT, AUTOMATED 214 10^3/uL (150-450); RED BLOOD COUNT 4.58 10^6/uL (4.00-5.40); WHITE BLOOD COUNT 11.7 10^3/uL (4.0-10.0)
[2022-02-10 08:58] LABS: ALBUMIN 3.6 GM/DL (3.2-5.2); ALT/SGPT 37 U/L (12-78); BILIRUBIN,DIRECT 0.3 MG/DL (0.0-0.2); BILIRUBIN,TOTAL 1.2 MG/DL (0.2-1.0); BLOOD UREA NITROGEN 14 MG/DL (7-18); CALCIUM LEVEL 9.2 MG/DL (8.5-10.1); CARBON DIOXIDE LEVEL 25 MEQ/L (21-32); CHLORIDE LEVEL 108 MEQ/L (98-107); CREATININE FOR GFR 0.84 MG/DL (0.55-1.30); GLOMERULAR FILTRATION RATE > 60.0 (>51); GLUCOSE, FASTING 162 MG/DL (70-100); LIPASE 101 U/L (73-393); SODIUM LEVEL 138 MEQ/L (136-145); TOTAL PROTEIN 7.4 GM/DL (6.4-8.2)
[2022-02-10] MEDS ORDERED: ISOVUE-370 76% 100ML VIAL As Ordered ONE (09:40)
[2022-02-10] MEDS ORDERED: NS 1,000 ML IV ONE (10:55)
[2022-02-10] MEDS ORDERED: cefTRIAXone SOD 1 GM in D5W MINI-BAG PLUS 50 ML IV ONE (12:20)
[2022-02-10] MEDS ORDERED: ACETAMINOPHEN 500 MG TAB PO ONE (12:45)
[2022-02-10] MEDS ORDERED: CEFD300C41 PO (13:27)
[2022-02-10] MEDS ORDERED: KETO10TAB PO (13:27)
[2022-02-10 13:38] VITALS: BP 150/67
== END 2022-02-10 13:49 | disposition home or self-care (01) ==
LOC: M ED 07:36
DX: N10 Acute pyelonephritis (principal); E03.9 Hypothyroidism, unspecified; N32.81 Overactive bladder; M54.50 Low back pain, unspecified; Z88.5 Allergy status to narcotic agent; Z88.6 Allergy status to analgesic agent; Z88.8 Allergy status to other drugs, medicaments and biological substances; Z91.040 Latex allergy status; Z79.890 Hormone replacement therapy; Z79.899 Other long term (current) drug therapy
CPT/HCPCS: 74176; 74177; 80048; 80076; 81000; 81015; 83605; 83690; 85025; 87040; 87088; 87186; 96361; 96365; 96375; 99284; J0696; J1885; J2405; Q9967

== ENCOUNTER → 2022-07-01 | Outpatient (CLI) | payer BC ==
[~2022-07-01] MED LIST changes: +CEFD300C41 PO; +KETO10TAB PO
== END ==
LOC: M PLALAB 16:39
PROVIDERS: ATTEND Nurse Practitioner Family
DX: Z15.09 Genetic susceptibility to other malignant neoplasm (principal); Z80.3 Family history of malignant neoplasm of breast

== ENCOUNTER → 2023-02-08 | Outpatient (CLI) | payer BC ==
[~2023-02-08] MED LIST changes: +BARIUM SULFATE 700 MG TABLET (E-Z-DISK) As Ordered ONE; +E-Z-PAQUE 96% w/w SUSP 176GM BTL As Ordered ONE; +VARIBAR NECTAR 40% w/v 240ML SUSP BTL As Ordered ONE; +VARIBAR PUDDING 40% w/v 230ML TUBE As Ordered ONE
== END ==
LOC: M RAD 12:08
PROVIDERS: ATTEND Otolaryngology
DX: R13.10 Dysphagia, unspecified (principal)

== ENCOUNTER → 2023-02-08 | Outpatient (CLI) | payer BC ==
[~2023-02-08] MED LIST changes: -BARIUM SULFATE 700 MG TABLET (E-Z-DISK) As Ordered ONE; -E-Z-PAQUE 96% w/w SUSP 176GM BTL As Ordered ONE; -VARIBAR NECTAR 40% w/v 240ML SUSP BTL As Ordered ONE; -VARIBAR PUDDING 40% w/v 230ML TUBE As Ordered ONE
== END ==
LOC: M WHC 11:06
PROVIDERS: ATTEND Nurse Practitioner Family
DX: Z12.31 Encounter for screening mammogram for malignant neoplasm of breast (principal)

== ENCOUNTER → 2023-02-24 | Outpatient (CLI) | payer BC | LOC: M WHC 15:37 | PROVIDERS: ATTEND Nurse Practitioner Family | DX: Z12.31 Encounter for screening mammogram for malignant neoplasm of breast (principal) ==

== ENCOUNTER → 2023-09-13 | Outpatient (CLI) | payer BC ==
[~2023-09-13] MED LIST changes: +CEFD1CAP9 PO; -CEFD300C41 PO; +PROHANCE 279.3MG/ML 15ML VIAL ONE; +PROHANCE 279.3MG/ML 5ML VIAL ONE
== END ==
LOC: M PLAIMG 15:32
PROVIDERS: ATTEND Nurse Practitioner Family
DX: R92.30 Dense breasts, unspecified (principal); Z80.3 Family history of malignant neoplasm of breast; Z91.89 Other specified personal risk factors, not elsewhere classified

== ENCOUNTER → 2023-09-27 | Outpatient (CLI) | payer BC ==
[~2023-09-27] MED LIST changes: -PROHANCE 279.3MG/ML 15ML VIAL ONE; -PROHANCE 279.3MG/ML 5ML VIAL ONE
== END ==
LOC: M WHC 13:00
PROVIDERS: ATTEND Nurse Practitioner Family
DX: R92.8 Other abnormal and inconclusive findings on diagnostic imaging of breast (principal)

== ENCOUNTER 2024-02-24 14:32 | Emergency (ER) | payer BC ==
[~2024-02-24] VITALS: Ht 162.6 cm; Wt 110.8 kg
[2024-02-24] MEDS ORDERED: OMEP-173 (14:42)
[2024-02-24] MEDS ORDERED: SEMA0.257 (14:42)
[2024-02-24] MEDS ORDERED: METF-838 (14:44)
[2024-02-24] MEDS ORDERED: ESTR10TA VG (14:46)
[2024-02-24 16:30] LABS: BASO % 0.2 % (0.0-1.0); EOS # 0.1 10^3/uL (0.0-0.5); EOS % 0.7 % (0.0-3.0); HEMATOCRIT 43.2 % (36.0-47.0); HEMOGLOBIN 14.4 g/dl (12.0-15.5); LYMPH # 2.3 10^3/uL (1.5-5.0); LYMPH % 18.3 % (24.0-44.0); MEAN CORPUSCULAR HEMOGLOBIN 29.6 pg (27.0-33.0); MEAN CORPUSCULAR HGB CONC 33.3 g/dl (32.0-36.5); MEAN CORPUSCULAR VOLUME 88.7 fl (80.0-96.0); MONO # 0.8 10^3/uL (0.0-0.8); MONO % 6.7 % (2.0-8.0); NEUTROPHILS # 9.2 10^3/uL (1.5-8.5); NEUTROPHILS % 73.9 % (36.0-66.0); PLATELET COUNT, AUTOMATED 252 10^3/uL (150-450); RED BLOOD COUNT 4.87 10^6/uL (4.00-5.40); WHITE BLOOD COUNT 12.5 10^3/uL (4.0-10.0)
[2024-02-24 16:50] LABS: LIPASE 51 U/L (12-53)
[2024-02-24 16:52] LABS: ALBUMIN 3.8 G/DL (3.2-5.2); ALKALINE PHOSPHATASE 129 U/L (46-116); ALT/SGPT 43 U/L (7.0-40); AST/SGOT 20 U/L (<34); BILIRUBIN,DIRECT 0.4 MG/DL (<0.4); BILIRUBIN,TOTAL 1.2 MG/DL (0.3-1.2); BLOOD UREA NITROGEN 10 MG/DL (9-23); CALCIUM LEVEL 10.4 MG/DL (8.3-10.6); CARBON DIOXIDE LEVEL 27 MMOL/L (20-31); CHLORIDE LEVEL 104 MMOL/L (98-107); CREATININE FOR GFR 0.67 MG/DL (0.55-1.30); GLOMERULAR FILTRATION RATE > 60.0 (>45); GLUCOSE, FASTING 122 MG/DL (74-106); POTASSIUM SERUM 4.2 MMOL/L (3.5-5.1); SODIUM LEVEL 137 MMOL/L (136-145); TOTAL PROTEIN 7.8 G/DL (5.7-8.2)
[2024-02-24] MEDS ORDERED: ISOVUE-370 76% 100ML VIAL As Ordered ONE (17:43)
[2024-02-24] MEDS: ACETAMINOPHEN *IV* 1,000 MG in IV 1 EA IV ONE (17:48)
[2024-02-24] MEDS ORDERED: LEVO1TAB40 PO (19:47)
[2024-02-24] MEDS ORDERED: METR-265 PO (19:47)
[2024-02-24] MEDS ORDERED: KETO10TAB PO (19:50)
[2024-02-24 19:55] VITALS: BP 112/69; TEMP 97.6; O2SAT 94
[2024-02-24] MEDS: metroNIDAZOLE (FLAGYL) 500MG TABLET PO ONE (20:23)
[2024-02-24] MEDS: LevoFLOXacin 750 MG TABLET PO ONE (20:23)
[2024-02-24] MEDS: KETOROLAC 30 MG/ML 1ML VIAL IV ONE (20:23)
== END 2024-02-24 20:30 | disposition home or self-care (01) ==
LOC: M ED 14:32
DX: K57.32 Diverticulitis of large intestine without perforation or abscess without bleeding (principal); E11.9 Type 2 diabetes mellitus without complications; E03.9 Hypothyroidism, unspecified; E78.5 Hyperlipidemia, unspecified; F10.10 Alcohol abuse, uncomplicated; Z88.1 Allergy status to other antibiotic agents; Z88.5 Allergy status to narcotic agent; Z88.8 Allergy status to other drugs, medicaments and biological substances; Z91.040 Latex allergy status; Z79.2 Long term (current) use of antibiotics; Z79.4 Long term (current) use of insulin; Z79.899 Other long term (current) drug therapy
CPT/HCPCS: 74177; 80048; 80076; 81001; 83605; 83690; 85025; 96365; 96366; 96374; 99284; J0131; J1885; Q9967

== ENCOUNTER → 2024-04-05 | Outpatient (CLI) | payer BC ==
[~2024-04-05] MED LIST changes: +ESTR10TA VG; +LEVO1TAB40 PO; +METF-838; +METR-265 PO; +OMEP-173; +SEMA0.257
== END ==
LOC: M WHC 10:51
PROVIDERS: ATTEND Nurse Practitioner Family
DX: Z12.31 Encounter for screening mammogram for malignant neoplasm of breast (principal); R92.8 Other abnormal and inconclusive findings on diagnostic imaging of breast

== ENCOUNTER → 2024-10-09 | Outpatient (CLI) | payer BC | LOC: M WHC 13:14 | PROVIDERS: ATTEND Nurse Practitioner Family | DX: Z91.89 Other specified personal risk factors, not elsewhere classified (principal); Z80.3 Family history of malignant neoplasm of breast; R92.30 Dense breasts, unspecified ==

== ENCOUNTER → 2025-04-10 | Outpatient (CLI) | payer BC | LOC: M WHC 15:04 | PROVIDERS: ATTEND Nurse Practitioner Family | DX: Z12.31 Encounter for screening mammogram for malignant neoplasm of breast (principal); R92.333 Mammographic heterogeneous density, bilateral breasts ==